=== PATIENT | male | born 1940 | race Caucasian/White ===

== ENCOUNTER 2016-08-06 22:15 | Emergency (ER) | payer OTHER ==
[2016-08-06 22:31] VITALS: BP 161/79; PULSE 69; RESP 22; TEMP 98.1; O2SAT 92
--- NOTE | 2016-08-06 22:34 | CPEKG ---
Heart Rate: 71 RR Interval: 845 P-R Interval: 212 QRSD Interval: 86 QT Interval: 404 QTC Interval: 439 P [place]: 7 QRS [place]: -22 T Wave [place]: 44 EKG Severity - OTHERWISE NORMAL ECG - EKG Impression: SINUS RHYTHM EKG Impression: BORDERLINE LEFT AXIS DEVIATION Electronically Signed By: Jesus Hudson 06-Aug-2016 22:41:04
--- NOTE | 2016-08-06 22:36 | UCPHY ---
H & P Patient Type: Established Chief Complaint Nursing Narrative: Pt had probable mechanical fall off ladder at 1130 today and felt immediate R hip pain. Then fell at 1330 getting out of hot tub, possible syncopal. Is now having trouble bearing weight on R side. cms intact. Time Seen by Provider: 08/06/16 22:21 HPI/ROS: CHIEF COMPLAINT: Hip pain, syncope HISTORY OF PRESENT ILLNESS: Patient is a 76-year-old man who comes to the Urgent Care complaining of hip pain and difficulty walking after a fall from a ladder around 11:00 a.m. he is bruising to his knee and hip and elbow. He is primarily complaining of pain in his hip and states that he cannot walk without using a walker. 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 He has a history of hip replacements bilaterally. this afternoon the patient decided to take a warm bath and while getting out of the bath fainted and hit his head on the wall. He denies headache or neck pain. He does take aspirin but no other blood thinners. He denies having any chest pain or shortness of breath. REVIEW OF SYSTEMS: Constitutional: denies: chills, fever, recent illness, recent injury EENTM: denies: blurred vision, double vision, nose congestion Respiratory: denies: cough, shortness of breath Cardiac: denies: chest pain, irregular heart rate, lightheadedness, palpitations Gastrointestinal/Abdominal: denies: abdominal pain, diarrhea, nausea, vomiting, blood streaked stools Genitourinary: denies: dysuria, frequency, hematuria, pain Musculoskeletal: See HPI Skin: denies: lesions, rash, jaundice, bruising Neurological: See HPI Hematologic/Lymphatic: denies: blood clots, easy bleeding, easy bruising Immunologic/allergic: denies: HIV/AIDS, transplant EXAM: GENERAL: Well-appearing, well-nourished and in no acute distress. HEAD: Atraumatic, normocephalic. EYES: Pupils equal round and reactive to light, extraocular movements intact, sclera anicteric, conjunctiva are normal. ENT: TMs normal, nares patent, oropharynx clear without exudates. Moist mucous membranes. NECK: Normal range of motion, supple without lymphadenopathy or JVD. No cervical spine tenderness LUNGS: Breath sounds clear to auscultation bilaterally and equal. No wheezes rales or rhonchi. HEART: Regular rate and rhythm without murmurs, rubs or gallops. ABDOMEN: Soft, nontender, normoactive bowel sounds. No guarding, no rebound. No masses appreciated. BACK: No CVA tenderness, no spinal tenderness, step-offs or deformities EXTREMITIES: Right hip pain, inguinal pain with rolling contusion to right knee , contusion to left elbow normal range of motion. NEUROLOGICAL: Cranial nerves II through XII grossly intact. Normal speech, normal gait. 5/5 strength, normal movement in all extremities, normal sensation PSYCH: Normal mood, normal affect. SKIN: Warm, dry, normal turgor, no visible rashes or lesions. Source: Patient, Family Exam Limitations: No limitations - Personal History Current Tetanus Diphtheria and Acellular Pertussis (TDAP): Yes - Medical/Surgical History Hx Asthma: Yes Hx Chronic Respiratory Disease: No Hx Diabetes: No Hx Cardiac Disease: No Hx Renal Disease: Yes Hx Cirrhosis: No Hx Alcoholism: No Hx HIV/AIDS: No Hx Splenectomy or Spleen Trauma: No Other PMH: L shoulder, HTN,R hip arthoplasty, renal insufficiency, hypothyroid, allergies & hayfever - Family History Significant Family History: No pertinent family hx - Social History Smoking Status: Never smoked Alcohol Use: Sober Drug Use: None Constitutional: Initial Vital Signs Temperature (C) 36.7 C 08/06/16 22:28 Heart Rate 69 08/06/16 22:28 Respiratory Rate 22 H 08/06/16 22:28 Blood Pressure 161/79 H 08/06/16 22:28 O2 Sat (%) 92 08/06/16 22:28 O2 Delivery Mode Room Air Allergies/Adverse Reactions: No Known Allergies Allergy (Unverified 08/06/16 22:26) Home Medications: Medication Instructions Recorded Levothyroxine [Synthroid 50 mcg 50 mcg PO DAILY06 08/18/14 (*)] Losartan Potassium [Cozaar 50 mg 50 mg PO DAILY 03/04/16 (*)] Aspirin EC [Aspirin EC 325 mg (*)] 325 mg PO DAILY #30 tab 03/06/16 Rosuvastatin Calcium [Crestor] 10 mg PO DAILY #0 tab 03/06/16 Medical Decision Making - Diagnostics EKG Interpretation: An EKG obtained and was read and documented in trace view. Please see trace view for full reading and report. Sinus rhythm no acute ischemic changes. ED Course/Re-evaluation: Recommended that the patient go to the ER so that he can have CT scan done of his head and likely pelvis to rule out pelvic fracture. We did do an EKG here which was sinus rhythm with no ischemic changes or arrhythmias. I arranged transfer to [facility] and spoke with Dr. Allen however the patient tells me prior to discharge that they are going to go to [facility] because they live close to that hospital. Differential Diagnosis: Partial list of the Differential diagnosis considered include but were not limited to; contusion, pelvic fracture, hip fracture, dislocation, head injury , neck injury, orthostatic syncope and although unlikely based on the history and physical exam, I also considered infection, aneurysm, intracranial injury, cervical spine injury. Departure - Departure Disposition: Acute Care Hospital Not [facility] Clinical Impression: Fall Qualifiers: Qualifier Code: (W19.XXXA) Unspecified fall, initial encounter Syncope Qualifiers: Qualifier Code: (R55) Syncope and collapse Condition: Fair Instructions: Fall Prevention (ED), Syncope (ED) Referrals: Lia Nieto MD [Primary Care Provider] - As per Instructions - PQRS PQRS Measurement: 134: Depression screening and followup, PRIME MD-PHQ2 (12 years and older) Over the last 2 weeks, how often have you been bothered by any of the following problems? 1. Feeling down, depressed, or hopeless? 2. Little interest or pleasure in doing things? Patient answered no to both 1 and 2 130: Documentation of medications. Reviewed all patient medications, doses, route and frequency. 226: Do you smoke? No. 47: 65 and older: Advanced care planning. Patient designates surrogate decision maker as spouse . Patient has advanced directive. 51: 18 years old and older with diagnosis of COPD, spirometry performance. Spirometry not performed; equipment not available. 52: 18 years old and older with COPD and symptoms of COPD or FEV1<60% predicted prescribed a B Agonist. Not applicable
== END 2016-08-06 22:44 | disposition short-term general hospital (02) ==
LOC: CED 22:15
DX: R55 Syncope and collapse (principal); M25.551 Pain in right hip; Z96.643 Presence of artificial hip joint, bilateral
CPT/HCPCS: 93005; G0463; 93010-PO; 99215-PO

== ENCOUNTER → 2016-08-06 | Outpatient (CLI) | payer OTHER ==
--- NOTE | 2016-08-06 14:45 | DX ---
PA and lateral chest x-ray 1036 hours. History: Persistent cough. Findings: Comparison to June 20, 2014. Heart size remains within normal limits. Pulmonary vasculature remains mildly prominent centrally. Th ere are a few fibrotic streaks at the left lung base stable in appearance. There is no consolidation, effusion, or pneumothorax. No significant peribronchial thickening is evident. Osseous structures ar e unchanged with mild degenerative disk disease mid thoracic spine. Left shoulder replacement is note d. Impression: 1. Stable mild fibrotic changes at the left base. 2. No active cardiopulmonary disease appreciated.
== END ==
LOC: CIMAGING 10:12
PROVIDERS: ATTEND Internal Medicine
DX: R05 Cough (principal)
CPT/HCPCS: 71020-PO

== ENCOUNTER 2016-12-16 18:51 | Inpatient (IN) | payer OTHER ==
--- NOTE | 2016-12-16 19:01 | EDPHY ---
H & P Time Seen by Provider: 12/16/16 19:00 HPI/ROS: CHIEF COMPLAINT: Expressive aphasia HISTORY OF PRESENT ILLNESS: This patient is a 76 year old male with history of one prior CVA who presents to the Emergency Department with acute expressive aphasia beginning at 1400, five hours prior to arrival. 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 She reports that he appeared confused but did not notice any additional concerns at that time. Upon arrival, he continues to experience moderate word-finding aphasia. He denies one-sided weakness or paresthesias. No headache. He has a history of a similar presentation in March 2016; he was diagnosed with a cerebellar CVA at that time. He takes daily aspirin but no additional anticoagulant use. REVIEW OF SYSTEMS: Constitutional: No fever, no chills Eyes: No visual changes ENT: No sore throat Respiratory: No cough, no shortness of breath Cardiac: No chest pain Gastrointestinal: No nausea, no vomiting, no abdominal pain Genitourinary: No hematuria, no dysuria Musculoskeletal: No leg pain or swelling Skin: No rash Neurological: +expressive aphasia, no headache, no numbness, no weakness Psychiatric: No depression Past Medical/Surgical History: The patient was admitted on 03/06/2016 for complaint of expressive aphasia and was diagnosed with a cerebellar CVA at that time. Records reviewed by myself. PMH also includes: Chronic kidney disease, hypertension, pulmonary embolism, hypothyroidism, hyperlipidemia, PSH includes: Right and left hip surgery, left shoulder surgery. Social History: at bedside. Non-smoker. 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 Smoking Status: Never smoked Physical Exam: General Appearance: Alert, no distress Eyes: Pupils equal and round, no conjunctival pallor or injection ENT, Mouth: Mucous membranes moist Neck: Normal inspection Respiratory: Lungs are clear to auscultation Cardiovascular: Regular rate and rhythm Gastrointestinal: Abdomen is soft and non- tender Neurological: Alert, oriented x3, expressive aphasia, cranial nerves II through XII intact, motor 5/5, sensory intact to light touch Skin: Warm and dry, no rash Extremities: Nontender, no pedal edema Psychiatric: Mood and affect normal Constitutional: Initial Vital Signs Temperature (C) 36.4 C 12/16/16 18:55 Heart Rate 68 12/16/16 18:55 Respiratory Rate 16 05/16/17 18:55 Blood Pressure 174/95 H 12/16/16 18:55 O2 Sat (%) 92 12/16/16 18:55 O2 Delivery Mode Room Air Allergies/Adverse Reactions: No Known Allergies Allergy (Verified 12/16/16 19:50) Home Medications: Medication Instructions Recorded Aspirin EC [Aspirin EC 81 mg (*)] 81 mg PO DAILY 12/16/16 Atorvastatin Calcium [Lipitor 20 20 mg PO DAILY 12/16/16 mg (*)] Herbals/Supplements -Info Only 1 ea PO DAILY 12/16/16 Levothyroxine [Synthroid 50 mcg 50 mcg PO DAILY 12/16/16 (*)] Losartan Potassium [Cozaar 50 mg 50 mg PO DAILY 12/16/16 (*)] Medical Decision Making - Diagnostics EKG Interpretation: EKG interpreted by me reveals normal sinus rhythm, rate 68, atrial premature complex, first degree AV block. Interpretation: normal EKG Imaging Results: Imaging Impressions Head CT 12/16/16 19:07 Impression: Nothing acute on this CT scan. Findings and recommendations discussed with Eleanor Ramos M.D., at 1922 hours , on December 16, 2016. Final report concurs with initial preliminary interpretation. Imaging: Discussed imaging studies w/ fisher scallop Radiologist (No hemorrhage.) ED Course/Re-evaluation: 1903: Stroke alert called by myself at time of presentation. NIH stroke score 1 at time of exam. This 76-year-old male with history of prior CVA in March 2016 presents with acute expressive aphasia presenting at 1400 today. His prior CVA presented with similar neurological deficits described as difficulty coherently producing sentences. Upon presentation today, he states that his symptoms have been improving and reports no additional deficits. He has apparent expressive aphasia and appears frustrated when attempting to speak. No additional deficits on exam. Will proceed with stroke alert protocol. 1906: Patient taken to Imaging for CT of the head. [facility] has been contacted. 1919: The patient has returned from his CT scan and appears much better. He is able to coherently produce sentences to explain the episode today. His reports that he appears to be behaving normally. He has rare trouble with word- finding when I speak with him. 1921: Imaging results reported to me by Dr. Nikki Wan; no acute hemorrhage. 1922: Dr. Robles, [facility] called back. CVA sx have resolved; no consult needed at this time. 1927: NIH stroke score at this time is 0. The patient is behaving and speaking normally per his . I discussed with him the plan for admission for continued evaluation and observation. He is agreeable to this. Pt took ASA today. 1928: Consultation with Dr. Raz Mcfadden, hospitalist, who accepts admission. Differential Diagnosis: The differential diagnosis for the patient's neurologic expressive aphasia included but was not limited to peripheral causes, central causes including CVA , TIA, electrolyte abnormalities and dehydration, cardiogenic causes, atypical causes like migraine syndrome. - Data Points Laboratory Results: Laboratory Results 12/16/16 19:00 12/16/16 19:00 12/16/16 12/16/16 12/16/16 19:00 19:00 18:59 WBC 9.56 10^3/uL H 10^3/uL (3.80-9.50) RBC 5.20 10^6/uL 10^6/uL (4.40-6.38) Hgb 16.6 g/dL g/dL (13.7-17.5) POC Hgb 16.3 gm/dL gm/dL (14.5-17.3) Hct 47.6 % % (40.0-51.0) POC Hct 48 % % (42.8-50.6) MCV 91.5 fL fL (81.5-99.8) MCH 31.9 pg pg (27.9-34.1) MCHC 34.9 g/dL g/dL (32.4-36.7) RDW 14.1 % % (11.5-15.2) Plt Count 180 10^3/uL 10^3/uL (150-400) MPV 9.6 fL fL (8.7-11.7) Neut % (Auto) 64.4 % % (39.3-74.2) Lymph % (Auto) 21.5 % % (15.0-45.0) [place] % (Auto) 8.3 % % (4.5-13.0) Eos % (Auto) 4.8 % % (0.6-7.6) Baso % (Auto) 0.7 % % (0.3-1.7) Nucleat RBC Rel Count 0.0 % % (0.0-0.2) Absolute Neuts (auto) 6.15 10^3/uL 10^3/uL (1.70-6.50) Absolute Lymphs (auto) 2.06 10^3/uL 10^3/uL (1.00-3.00) Absolute Monos (auto) 0.79 10^3/uL 10^3/uL (0.30-0.80) Absolute Eos (auto) 0.46 10^3/uL H 10^3/uL (0.03-0.40) Absolute Basos (auto) 0.07 10^3/uL 10^3/uL (0.02-0.10) Absolute Nucleated RBC 0.00 10^3/uL 10^3/uL (0-0.01) Immature Gran % 0.3 % % (0.0-1.1) Immature Gran # 0.03 10^3/uL 10^3/uL (0.00-0.10) POC Sodium 143 mEq/L mEq/L (134-144) Sodium 140 mEq/L mEq/L (134-144) POC Potassium 4.4 mEq/L mEq/L (3.3-5.0) Potassium 4.4 mEq/L mEq/L (3.5-5.2) POC Chloride 108 mEq/L mEq/L (96-108) Chloride 107 mEq/L mEq/L (97-110) Carbon Dioxide 21 mEq/l L mEq/l (22-31) Anion Gap 12 mEq/L mEq/L (8-16) POC BUN 43 mg/dL H mg/dL (7-23) BUN 37 mg/dL H mg/dL (7-23) Creatinine 1.8 mg/dL H mg/dL (0.7-1.3) POC Creatinine 1.7 mg/dL H mg/dL (0.8-1.5) Estimated GFR 37 Glucose 156 mg/dL H mg/dL (70-100) POC Glucose 156 mg/dL H mg/dL (70-100) Calcium 9.5 mg/dL mg/dL (8.5-10.4) Troponin I < 0.012 ng/mL ng/mL (0-0.034) Point of Care Test Results: 12/16/16 18:59 POC Sodium 143 POC Potassium 4.4 POC Chloride 108 POC BUN 43 H POC Creatinine 1.7 H POC Glucose 156 H Departure - Departure Disposition: [facility] Inpatient Acute Clinical Impression: Expressive aphasia TIA (transient ischemic attack) Qualifiers: Transient cerebral ischemia type: unspecified Qualified Code(s): G45.9 - Transient cerebral ischemic attack, unspecified Condition: Fair Report Scribed for: Eleanor Ramos Report Scribed by: Erika Anne Date of Report: 12/16/16 Time of Report: 19:01 Physician Review and Approval Statement: 12/16/16 19:01 Portions of this note were transcribed by a medical record transcriber. I personally performed a history, physical exam, medical decision making, and confirmed accuracy of information the transcribed note.
[2016-12-16] MEDS ORDERED: ALTEPLASE 50 MG/50 ML VIAL ONE (19:10)
[2016-12-16] MEDS ORDERED: ALTEPLASE 100 MG/100 ML VIAL IV ONE (19:14)
--- NOTE | 2016-12-16 19:14 | CPEKG ---
Heart Rate: 68 RR Interval: 882 P-R Interval: 224 QRSD Interval: 86 QT Interval: 404 QTC Interval: 430 P [place]: 54 QRS [place]: 24 T Wave [place]: 54 EKG Severity - ABNORMAL ECG - EKG Impression: SINUS RHYTHM EKG Impression: ATRIAL PREMATURE COMPLEX EKG Impression: FIRST DEGREE AV BLOCK Electronically Signed By: Eleanor Ramos 16-Dec-2016 20:54:24
[2016-12-16 19:15] LABS: % IMMATURE GRANULYOCYTES 0.3 % (0.0-1.1); ABSOLUTE IMMATURE GRANULOCYTES 0.03 10^3/uL (0.00-0.10); ADD DIFF? NO; ADD MORPH? NO; ADD SCAN? NO; ATYPICAL LYMPHOCYTE FLAG 10 (0-99); FRAGMENT RBC FLAG 0 (0-99); HEMATOCRIT 47.6 % (40.0-51.0); HEMOGLOBIN 16.6 g/dL (13.7-17.5); LEFT SHIFT FLG 0 (0-99); LIPEMIA HEMOLYSIS FLAG 90 (0-99); MEAN CELL HEMOGLOBIN 31.9 pg (27.9-34.1); MEAN CELL HEMOGLOBIN CONCENTR. 34.9 g/dL (32.4-36.7); MEAN CELL VOLUME 91.5 fL (81.5-99.8); MEAN PLATELET VOLUME 9.6 fL (8.7-11.7); PLATELET CLUMPS FLAG 10 (0-99); PLATELET COUNT 180 10^3/uL (150-400); RED CELL DISTRIBUTION WIDTH 14.1 % (11.5-15.2)
[2016-12-16 19:23] LABS: ANION GAP 12 mEq/L (8-16); CALCIUM 9.5 mg/dL (8.5-10.4); CARBON DIOXIDE 21 mEq/l (22-31); CHLORIDE 107 mEq/L (97-110); CREATININE 1.8 mg/dL (0.7-1.3); GLOMERULAR FILTRATION RATE 37; GLUCOSE 156 mg/dL (70-100); POTASSIUM 4.4 mEq/L (3.5-5.2); SODIUM 140 mEq/L (134-144)
[2016-12-16 19:35] LABS: TROPONIN I < 0.012 ng/mL (0-0.034)
[2016-12-16] MEDS ORDERED: ACETAMINOPHEN 325 MG TAB PO PRN (20:20)
[2016-12-16] MEDS ORDERED: ONDANSETRON 4 MG/2 ML VIAL IVP PRN (20:20)
[2016-12-16] MEDS ORDERED: ONDANSETRON DISINTEGRATING 4 MG TAB PO PRN (20:20)
[2016-12-16] MEDS: CLOPIDOGREL BISULFATE 75 MG TAB PO SCH (20:47)
--- NOTE | 2016-12-16 21:03 | GHP ---
[f rep st] HISTORY AND PHYSICAL DATE OF ADMISSION: 12/16/2016 HISTORY: The patient is a pleasant 76-year-old gentleman with history of TIA and hypertension, who presents with what sounds like an episode of expressive aphasia. 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 He was n ot sure what to say. He had a hard time accessing his words. He denies dysarthria, confusion, foca l weakness on one side or another. He returned home at the end of the school day, a couple hours la ter, went home. He went upstairs to change, and about 20 minutes later, his went up and he sadaf d her what happened. They called the ER, and they came here. At this point in time, his NIH stroke scale was 1 on arrival, and ultimately it became 0. When I speak with the patient, he is fluent. He did mention that he was almost 67, but he is actually almost 77, but other than that, he was flue nt and able to name objects and denied other focal neurologic deficits. He has not had any TIA-like symptoms since his admission here. Over last summer with multifocal CVA, which I will discuss lilibeth cevallos. He denies palpitations, fever, chills, nausea, vomiting, diarrhea. He does not smoke cigarettes . He says he has been compliant with aspirin and statin. REVIEW OF SYSTEMS: Complete 10-point review of systems conducted and negative except as noted in th e HPI. PAST MEDICAL HISTORY: 1. Multifocal CVA. Please see MRI from 03/04/2016. This is consistent with embolic infarct. He w as found have a small PFO. He had ultrasounds of multiple extremities, showing no evidence of DVT, and ultimately he was placed on aspirin and not therapeutic anticoagulation. This was confirmed by [facility] and seen by Cardiology, did not recommend closure, as the literature in a scenario like this cruz s not demonstrate benefit. 2. Hypertension. 3. Possible hyperlipidemia. 4. Hypothyroidism. ALLERGIES: No known drug allergies. HOME MEDICATIONS: Losartan, aspirin, atorvastatin, levothyroxine. SOCIAL HISTORY: Occasional alcohol. No tobacco. Lives in [place]. 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 FAMILY HISTORY: Parents . PHYSICAL EXAMINATION: VITAL SIGNS: Temp 36.9, blood pressure 140/84, it was 174/95 on presentation , pulse 86, breathing 16 times a minute, 94% on room air. GENERAL: No acute distress. HEENT: Scl erae anicteric. Oropharynx clear. Mucous membranes are moist. NECK: Supple without lymphadenopat hy or JVD. LUNGS: Clear to auscultation bilaterally. HEART: S1, S2. ABDOMEN: Soft, nontender, nondistended. LOWER EXTREMITIES: Without edema. Calves are nontender. SKIN: Without rash. NEUR OLOGIC: The patient appears fluent, as far as I can tell. He is able to name objects, repeat objec ts. He does not have dysarthria. Upper extremity and lower extremity strength are 5/5 bilaterally. Cerebellar testing not done. Head CT performed shows no acute bleed or stroke. They have commented on moderate periventricular w venkatesh matter disease, and multifocal small stroke seen on the MRI was not noted. EKG, interpreted by me, shows sinus at 68 with normal axis and intervals. There are no ST or T-wave changes. There is 1 PAC. I have discussed the case with Dr. Eleanor Ramos. ASSESSMENT/PLAN: 76-year-old gentleman with transient ischemic attack. 1. Transient ischemic attack. This is certainly consistent with a TIA, as far as I am concerned. This probably represents a failure of aspirin. We can transition him to Plavix. We can check a lip id panel in the morning. I think it is reasonable to repeat an MRI, because if he does have more ev idence of multifocal CVAs, then perhaps a greater search for an embolic source, such as his aortic, could be considered. This was discussed during his last hospitalization. 2. History of patent foramen ovale. I think this is probably a non-issue. 3. Transient ischemic attack, on aspirin. Will transition him to Plavix. I have not ordered an ec hocardiogram as he had [facility] during his last admission. I do not anticipate that it has changed. 4. Prophylaxis. He has a history of DVT and PE following shoulder surgery. He therefore should be on prophylaxis if he is in the hospital longer than 24 hours. I anticipate that he will leave [facility], so I will hold at this time. 5. Disposition. Observation status. /[id number]/MODL
[2016-12-17] MEDS: LEVOTHYROXINE 50 MCG TAB PO SCH (05:56)
[2016-12-17 06:01] LABS: CHOLESTEROL 112 mg/dL (140-220); CHOLESTEROL/HDL RATIO 2.38 RATIO (1.00-4.97); HIGH DENSITY LIPOPROTEIN 47 mg/dL (40-65); LDL/HDL RATIO 0.94 RATIO (1.00-3.64); LOW DENSITY LIPOPROTEIN 44 mg/dL (80-100); NON-HIGH DENSITY LIPOPROTEIN 65 mg/dL (90-129); TRIGLYCERIDE 107 mg/dL (40-150); VERY LOW DENSITY LIPOPROTEINS 21 mg/dL (8-25)
[2016-12-17] MEDS: CLOPIDOGREL BISULFATE 75 MG TAB PO SCH (08:29)
[2016-12-17] MEDS: ATORVASTATIN CALCIUM 20 MG TAB PO SCH (08:29)
[2016-12-17] MEDS: LOSARTAN POTASSIUM 50 MG TAB PO SCH (08:29)
[2016-12-17] MEDS ORDERED: Herbals/Supplements -Info Only PO SCH (09:00)
--- NOTE | 2016-12-17 17:45 | HOSPPROG ---
Hospitalist Progress Note Assessment/Plan: # Acute CVA - MRI (personally reviewed and interpreted) punctate left frontoparietal infarct patient with persist aphasia - oxygen saturations 90% on RA - plavix started- continuing aspirin - neurology consulting - cardiology to place a monitor in am - make NPO # h/o Cerebrovascular disease - suspected embolic etiology without identified afib- LDL 44 - cont plavix as above - repeating ECHO # HTN - appropriate control # proph - lovenox # diet NPO after midnight for event monitor implantation I have discussed the case with neurology - will treat with dual antiplatelet meds and continue diagnostic work up for embolic source Subjective: still having word finding difficulties Objective: Vital Signs Temp Pulse Resp BP Pulse Ox 36.7 C 57 L 18 158/85 H 90 L 12/17/16 16:00 12/17/16 16:00 12/17/16 16:00 12/17/16 16:00 12/17/16 16:00 12/16/16 12/17/16 12/18/16 05:59 05:59 05:59 Intake Total 300 Balance 300 - Physical Exam Constitutional: appears nourished Eyes: anicteric sclera Ears, Nose, Mouth, Throat: moist mucous membranes Cardiovascular: regular rate and rhythym, systolic murmur Respiratory: no respiratory distress, no rales or rhonchi Gastrointestinal: normoactive bowel sounds, soft, non-tender abdomen Genitourinary: no bladder fullness Skin: warm, normal color Musculoskeletal: No asymmetric calves Neurologic: AAOx3, other (aphasia) Psychiatric: interacting appropriately, not anxious Lymph, Heme, Immunologic: no cervical LAD ICD10 Worksheet Patient Problems: Problems Problem Status Onset Expressive aphasia Acute TIA (transient ischemic attack) Acute Altered mental status Acute Osteoarthritis of hip Acute
--- NOTE | 2016-12-18 02:58 | GCON ---
[f rep st] CONSULTATION NEUROLOGY CONSULTATION REFERRING PHYSICIAN: Raz Mcfadden MD BILLING INFORMATION: 70 total minutes on floor time today in coordination of care with other providers including Cardiology and Internal Medicine, reviewing records from 2016 and this admission, along with direct counseling of the patient and his . CHIEF COMPLAINT: Stroke. HISTORY OF PRESENT ILLNESS: The patient is a very pleasant 76-year-old gentleman, who I know well from multiple bilateral cerebral infarcts he had in March 2016. Please see his extensive notes and records at that time. He had a full workup including venous ultrasounds, surface and transesophageal echocardiogram, neck and head MRA, ECG, telemetry, and outpatient 30-day event monitor. In the end, there was no cause found for his strokes. The pattern suggested a proximal embolic phenomena. 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 This occurred while taking daily aspirin 81 mg daily. He was discharged on 325 mg daily from his March 2016 hospitalization. The patient was evaluated via stroke alert and had an NIH score of 1, and was not deemed to be a thrombolysis candidate, and was admitted for further evaluation. Brain MRI done yesterday showed a small acute to subacute focal infarct in the left frontoparietal junction. There was some encephalomalacia as well corresponding to his previous infarcts. He has had no atrial fibrillation overnight on ECG telemetry. I discussed the case at length with Dr. Leonardo and Dr. Oden of Cardiology. Overall, although he has had negative tests for paroxysmal atrial fibrillation, this history certainly warrants further studies in that regard. This we discuss further below in the assessment and plan. For past medical history, social history, family history, review of systems, please see the history and physical by Dr. Mcfadden. PHYSICAL EXAM: VITAL SIGNS: Blood pressure 126/72, temperature 36.8, heart rate 63 and regular, respiratory rate 16. HIGHER MENTAL FUNCTIONS: He is awake , alert, and can name 3/5. He has expressive difficulties and has circular and tangential features, as he has difficulty finding the words he wants to say. There were also telegraphic portions to his speech. Comprehension was normal and following commands up to 2 and 3 steps. He had an aphasia, expressive greater than comprehension. Cranial nerve exam was normal 2 through 7 and 12. MOTOR: Normal strength and tone throughout. SENSORY: Normal to light touch in all 4 extremities. COORDINATION: Normal in upper and lower extremities. IMPRESSION AND PLAN: 1. Small left frontal infarct. The patient has had a recurrent stroke in the left frontal region causing his expressive aphasia. I discussed the case at length with Internal Medicine and Cardiology. He has not evidence of PAF on ECG telemetry or outpatient 30 day monitor. We will check an echocardiogram to ensure there is no obvious intracardiac thrombus. If there is no thrombus, we will discharge the patient on dual antiplatelet therapy with Plavix 75 mg daily and aspirin 81 mg daily, and have the patient follow up with Cardiology within 1 week for implantation of a LINQ implantable hospital monitor for prolonged screening for any paroxysmal atrial fibrillation. He should continue statin therapy. He will have outpatient speech therapy, as well. We also discussed reasons and precautions to return to the ER in terms of recurrent stroke symptoms. Otherwise, he will have close followup with Internal Medicine, Cardiology, and speech therapy as an outpatient. No further recommendations now. Thank you for this consultation. /[id number]/MODL MTDD
[2016-12-18] MEDS: LEVOTHYROXINE 50 MCG TAB PO SCH (05:27)
[2016-12-18] MEDS: LOSARTAN POTASSIUM 50 MG TAB PO SCH (08:16)
[2016-12-18] MEDS: ATORVASTATIN CALCIUM 20 MG TAB PO SCH (08:34)
[2016-12-18] MEDS: CLOPIDOGREL BISULFATE 75 MG TAB PO SCH ×2 (08:34→16:05)
--- NOTE | 2016-12-18 10:43 | SUROPNOTE ---
SANJEEV Operative Report - Surgery PROCEDURE: LINQ implant INDICATION: CVAs without cause - suspect pAF DETAILS: After consent was obtained, the patient was draped in the usual sterile fashion. Lidocaine was used to the left sternal border at the location of the 2nd and 3rd intercostal space. A single incision was made with a #12 blade, then proper size and depth was achieved with the provided blade. The LINQ rail delivery system was used to position the device without incident, and the incision was then closed with three antony. DEVICE INFORMATION: [employer] LINQ SN: [id number] No complications were appreciated No sedation was used Patient recovered without incident
--- NOTE | 2016-12-18 13:17 | NEUROPROG ---
Assessment: 1. Left frontal stroke, cryptogenic The patient stayed overnight for further cardiac evaluation and had the LINQ monitor placed this morning. I appreciate cardiology's assistance with this gentleman's case. He is having the echocardiogram now. If there is no obvious intracardiac thrombus, he can be discharged home from my standpoint on dual antiplatelet therapy with Plavix 75 mg +aspirin 81 mg daily and have close follow-up with cardiology, primary care and speech therapy as an outpatient. If there is any evidence of paroxysmal atrial fibrillation on his implantable satellite project site monitor, then the optimal treatment would be switching from anti- platelet therapy to oral anticoagulation. No further recommendations now. We will sign off and continue to follow as needed. Please do not hesitate to call with any questions or changes in neurologic status. Subjective: No new symptoms Objective: Vital Signs Temp Pulse Resp BP Pulse Ox 36.6 C 54 L 18 134/85 H 94 12/18/16 11:59 12/18/16 11:59 12/18/16 11:59 12/18/16 11:59 12/18/16 11:59 Patient is awake and alert He is aphasic, expressive greater than comprehension Allergies/Adverse Reactions: No Known Allergies Allergy (Verified 12/16/16 19:50)
--- NOTE | 2016-12-18 16:30 | HOSPPROG ---
Hospitalist Progress Note Assessment/Plan: # Acute CVA - CT (personally reviewed and interpreted) MRI (personally reviewed and interpreted) punctate left frontoparietal infarct patient with persist aphasia - oxygen saturations 90% on RA - continue plavix and aspirin - neurology and cardiology consulting - Linx monitor to be placed today - NPO for procedure # h/o Cerebrovascular disease - suspected embolic etiology without identified afib- LDL 44 - cont plavix and aspirin - repeating ECHO # HTN - appropriate control # proph - lovenox # diet NPO until procedure I have discussed the case with RN - will work towards rehab placement as actively recommended by therapies Subjective: Aphasia persists Objective: Vital Signs Temp Pulse Resp BP Pulse Ox 36.4 C 59 L 20 128/74 H 93 12/18/16 15:31 12/18/16 15:31 12/18/16 15:31 12/18/16 15:31 12/18/16 15:31 12/17/16 12/18/16 12/19/16 05:59 05:59 05:59 Output Total 1200 Balance -1200 - Physical Exam Constitutional: appears nourished Eyes: anicteric sclera Ears, Nose, Mouth, Throat: moist mucous membranes Cardiovascular: regular rate and rhythym Respiratory: no respiratory distress, no rales or rhonchi Gastrointestinal: normoactive bowel sounds, soft, non-tender abdomen Genitourinary: no bladder fullness Skin: warm, normal color Musculoskeletal: No asymmetric calves Neurologic: other (aphasia) Psychiatric: interacting appropriately Lymph, Heme, Immunologic: no cervical LAD ICD10 Worksheet Patient Problems: Problems Problem Status Onset Expressive aphasia Acute TIA (transient ischemic attack) Acute Altered mental status Acute Osteoarthritis of hip Acute
--- NOTE | 2016-12-18 17:16 | ECHO ---
[id number] + + [address] : : [place] [address] : : [phone] + + Adult Echocardiographic Report + -----+ :Name: SHAWNA ARIAS Catrina Date: 12/18/2016 01:04 PM : : Hospital Admission Number: [id number] Location : 361: :: 1940 Gender: Male Height: 70 in : :Age: 76 yrs Race: WH Weight: 201 lb : :Reason For Study: Eval for embolic source : : BSA: 2.1 meters2 : :History: Expressive Aphasia, Post Linq Placement, Known PFO : + -----+ MMode/2D Measurements \T\ Calculations IVSd: 0.94 cm LVIDd: 3.5 cm FS: 46.5 % Ao root diam: 3.7 cm LVPWd: 1.1 cm LVIDs: 1.9 cm EDV(Teich): 51.9 ml ACS: 1.9 cm ESV(Teich): 11.0 ml EF(Teich): 78.8 % Normal Measurement Values: + + :LVIDd (3.5-5.7cm) IVSd (0.6-1.1cm) LVPWd (0.6-1.1cm) Aortic Root (2.0-3.7cm)Left Atrium (1.5-4.0cm): :LV Vol(d) (76-115ml) LV Vol(s) (29-48ml) Ejec Fraction (50-65%)PV Ke (0.6- 1.2m/s) TV Ke (0.4-1.0m/s) : :MV E Ke (0.8-1.0m/s)MV A Ke (0.3-1.0m/s)LVOT Ke (0.7-1.2m/s) Asc Ao Ke ( 0.9-1.8m/s) : + + Doppler Measurements \T\ Calculations MV E max ke: 47.9 cm/sec MV A max ke: 62.2 cm/sec MV E/A: 0.77 Left Ventricle The left ventricle is normal in size. There is normal left ventricular wall thickness. The left ventricular ejection fraction is normal. There is Doppler evidence for diastolic dysfunction. Ejection Fraction = 78%. The left ventricular wall motion is normal. Right Ventricle The right ventricle is normal in size and function. Atria The left atrial size is normal. Right atrial size is normal. Mitral Valve The mitral valve is normal in structure and function. There is trace mitral regurgitation. Tricuspid Valve Normal tricuspid valve. No tricuspid regurgitation. Aortic Valve The aortic valve is normal in structure and function. There is no aortic stenosis. There is no aortic insufficiency. Pulmonic Valve The pulmonic valve is not well visualized. There is no pulmonic valvular regurgitation. Great Vessels The aortic root is normal size. Pericardium/Pleural There is no pericardial effusion. Conclusion A complete two-dimensional transthoracic echocardiogram was performed (2D, M-mode, Doppler and color flow Doppler). (1) Left ventricular systolic ejection fraction was normal (75%) - normal wall motion (2) No left ventricular hypertrophy (3) Diastolic dysfunction was present (4) Normal right ventricular size and function (5) Normal atrial dimensions (6) Physiologic mitral regurgitation (7) Trileaflet aortic valve without sclerosis or insufficiency (8) Grossly normal tricuspid valve (9) Poor visualization of the pulmonic valve (10) In comparison to prior echocardiogram from 03-06-16, no changes have been noted. There is a known PFO from previous BRUNA exam and TIA 03/18 Final Reading Physician: Didi Anderson signed on 12/18/2016 05:15 PM Ordering Physician: Robert Madison Performed By: Martinez Belcher, KIMCS
[2016-12-19 04:49] LABS: HEMATOCRIT 47.2 % (40.0-51.0); HEMOGLOBIN 16.5 g/dL (13.7-17.5); MEAN CELL HEMOGLOBIN 31.5 pg (27.9-34.1); MEAN CELL VOLUME 90.1 fL (81.5-99.8); RED BLOOD CELL COUNT 5.24 10^6/uL (4.40-6.38)
[2016-12-19 05:14] VITALS: RESP 16
[2016-12-19] MEDS: LEVOTHYROXINE 50 MCG TAB PO SCH (05:14)
[2016-12-19 07:16] VITALS: TEMP 97.9
[2016-12-19] MEDS: CLOPIDOGREL BISULFATE 75 MG TAB PO SCH (08:53)
[2016-12-19] MEDS: LOSARTAN POTASSIUM 50 MG TAB PO SCH (08:53)
[2016-12-19] MEDS: ATORVASTATIN CALCIUM 20 MG TAB PO SCH (08:55)
--- NOTE | 2016-12-19 11:32 | PDIAF ---
- Diagnosis Diagnosis: cva Code Status: Full Code - Medication Management Discharge Medications: Medications to Continue on Transfer Aspirin EC [Aspirin EC 81 mg (*)] 81 mg PO DAILY 12/16/16 [Last Taken 12/16/16] Atorvastatin Calcium [Lipitor 20 mg (*)] 20 mg PO DAILY 12/16/16 [Last Taken ] Herbals/Supplements -Info Only 1 ea PO DAILY 12/16/16 [Last Taken Unknown] Levothyroxine [Synthroid 50 mcg (*)] 50 mcg PO DAILY 12/16/16 [Last Taken ] Losartan Potassium [Cozaar 50 mg (*)] 50 mg PO DAILY 12/16/16 [Last Taken ] Clopidogrel Bisulfate [Plavix (*)] 75 mg PO DAILY tab 12/19/16 [Last Taken Unknown] Discharge Medications: Refer to the Discharge Home Medication list for PRN reason. - Orders Services needed: Registered Nurse, Physical Therapy, Occupational Therapy, Speech Language Pathologist Diet Recommendation: cardiac -low fat low salt Diet Texture: Regular Texture Diet - Follow Up Care Current Providers and Referrals: SHEELA CORREA [Other] - As per Instructions Robert Madison MD [Medical Doctor] - Abisai Oden MD [Medical Doctor] -
[2016-12-19 11:33] VITALS: BP 112/67; PULSE 76; O2SAT 97
--- NOTE | 2016-12-19 15:43 | GDS ---
[f rep st] DISCHARGE SUMMARY DISCHARGE DIAGNOSES: Include. 1. Acute left frontal stroke. 2. History of previous stroke and cerebral vascular disease, multifocal on previous diagnosis. 3. Hypertension. 4. Hyperlipidemia. 5. Hypothyroidism. 6. 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 For details of patient's initial presentation, ple ase see the history and physical dated 12/16/2016. CONSULTATIVE SERVICES: Include Cardiology and Neurology. PROCEDURES: On 12/16/2016, patient had an MRI of the brain, which shows an acute punctate infarct o f the left frontoparietal junction with encephalomalacia in areas of prior stroke, largest areas in the periphery of the left parietal lobe. On 12/17/2016, patient had a transthoracic echocardiogram, which shows no intracardiac thrombus. Ejection fraction estimated at 75%. 12/18/2016, patient had a link monitor placed for workup of suspected atrial fibrillation. HOSPITAL COURSE: By issue. 1. Acute CVA. Patient was admitted, had appropriate imaging and workup, including MRI and echo. S uspicion remains high for the patient having undiagnosed atrial fibrillation based on his PFO and mu ltifocal strokes in the past. He was initiated on Plavix and aspirin as dual therapy and is being d ischarged to inpatient rehabilitation for speech, occupational and physical therapy. The patient wi ll follow with both Neurology and Cardiology for monitoring of the Link and ongoing workup for possi ble atrial fibrillation. 2. Hypertension. Patient's blood pressures remain more controlled during this hospital stay. His home medications were continued. 3. Hypothyroidism. Again, no changes were made to his medication regimen. PENDING STUDIES: At the time of this dictation are none. FOLLOWUP APPOINTMENTS: Include with Cardiology and Neurology in the next 2-4 weeks. I spent greate r than 30 minutes in the planning and coordination of this disposition. /[id number]/MODL
== END 2016-12-19 14:13 | DRG 41 ==
LOC: F3N 20:16 → OBSVTOIN 12-18 09:03
PROVIDERS: ADMIT Internal Medicine; ATTEND Hospitalist
PROC: 0JH60PZ Insertion of Cardiac Rhythm Related Device into Chest Subcutaneous Tissue and Fascia, Open Approach (ICD-10-PCS; principal; 2016-12-18)
DX: I63.9 Cerebral infarction, unspecified (principal); Q21.1 Atrial septal defect; R47.01 Aphasia; I10 Essential (primary) hypertension; E78.5 Hyperlipidemia, unspecified; E03.9 Hypothyroidism, unspecified; Z86.73 Personal history of transient ischemic attack (TIA), and cerebral infarction without residual deficits
CPT/HCPCS: 82947-QW; 92507-GN; 92523-GN; 97116-GP; 97162-GP; 97166-GO; 97530-GO; 97532-GO; 97535-GO; C1764; G0378; G8978-GP-CI; G8979-GP-CH; G8987-GO-CJ; G8988-GO-CI; G8989-GO-CJ; G9162-GN-CK; G9163-GN-CJ; J2997

== ENCOUNTER 2017-01-04 13:20 | Emergency (ER) | payer OTHER ==
--- NOTE | 2017-01-04 13:35 | EDPHY ---
H & P Stated Complaint: "not feeling well" Time Seen by Provider: 01/04/17 13:34 - Personal History Current Tetanus/Diphtheria Vaccine: Yes Current Tetanus Diphtheria and Acellular Pertussis (TDAP): Yes - Medical/Surgical History Hx Asthma: Yes Hx Chronic Respiratory Disease: No Hx Diabetes: No Hx Cardiac Disease: No Hx Renal Disease: Yes Hx Cirrhosis: No Hx Alcoholism: No Hx HIV/AIDS: No Hx Splenectomy or Spleen Trauma: No Other PMH: L shoulder, HTN,R/l hip arthoplasty, renal insufficiency, hypothyroid , - Social History Smoking Status: Never smoked Constitutional: Initial Vital Signs Temperature (C) 36.7 C 01/04/17 13:23 Heart Rate 64 01/04/17 13:23 Respiratory Rate 14 01/04/17 13:23 Blood Pressure 114/74 01/04/17 13:23 O2 Sat (%) 94 01/04/17 13:23 O2 Delivery Mode Room Air Allergies/Adverse Reactions: No Known Allergies Allergy (Verified 12/16/16 19:50) Home Medications: Medication Instructions Recorded Aspirin EC [Aspirin EC 81 mg (*)] 81 mg PO DAILY 12/16/16 Atorvastatin Calcium [Lipitor 20 20 mg PO DAILY 12/16/16 mg (*)] Herbals/Supplements -Info Only 1 ea PO DAILY 12/16/16 Levothyroxine [Synthroid 50 mcg 50 mcg PO DAILY 12/16/16 (*)] Losartan Potassium [Cozaar 50 mg 50 mg PO DAILY 12/16/16 (*)] Clopidogrel Bisulfate [Plavix (*)] 75 mg PO DAILY tab 12/19/16 Medical Decision Making ED Course/Re-evaluation: CHIEF COMPLAINT: Malaise HISTORY OF PRESENT ILLNESS: The patient is a 77 y/o male, with a recent history of CVA and ongoing aphasia, arriving with his complaining of general malaise onset today. He has a history of multifocal CVA and embolic infarction, PFO, hypertension, and recent implantation of a LINQ monitor after his CVA on 12/16/16, about 3 weeks ago. His states he has difficulty expressing how he feels today due to the aphasia. His states he was unable to pull weeds with his and went inside after stating he didn't feel well. They contacted his information analyst, Dr. Oden, for evaluation. He currently denies fever, chills, chest pain, abdominal pain, vomiting, diarrhea, headache, urinary complaints, cough, rhinorrhea, or dizziness. There is some question if the patient has been able to stay properly hydrated while outside today. REVIEW OF SYSTEMS: A 10 point review of systems was performed and is negative with the exception of the elements mentioned in the history of present illness. PHYSICAL EXAM: HR, BP, O2 Sat, RR. Temp noted General Appearance: Alert, well hydrated, appropriate, and non-toxic appearing. Head: Atraumatic without scalp tenderness or obvious injury Eyes: Pupils equal, round, reactive to light and accommodation, EOMI, no trauma , no injection. Ears: Clear bilaterally, no perforation, normal landmarks Nose: Atraumatic, no rhinorrhea, clear. Throat: There is no erythema or exudates, no lesions, normal tonsils, mucus membranes moist. Neck: Supple, nontender, no lymphadenopathy. Respiratory: No retractions, no distress, no wheezes, and no accessory muscle use. Lungs are clear to auscultation bilaterally. Cardiovascular: Regular rate and rhythm, no murmurs, rubs, or gallops. Good capillary refill all extremities. Gastrointestinal: Abdomen is soft, nontender, non-distended, no masses, no rebound, no guarding, no peritoneal signs. Musculoskeletal: Normal active ROM of all extremities, atraumatic. Neurological: Alert, appropriate, and interactive. Nonfocal. Skin: No rashes, good turgor, no nodules on palpation. Past medical history: CVA x2 - most recently December 2016, PFO on BRUNA in Mar 2016 - not repaired, hypertension Past surgical history: LINQ monitor implanted December 2016 Family history: noncontributory Social history: at bedside. Nonsmoker. 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 Oden Prior medical records reviewed including admission 12/16/16 for CVA. DIAGNOSTICS/PROCEDURES/CRITICAL CARE TIME: The 12 lead EKG was interpreted by myself. Sinus rhythm rate 57. First degree AV block. See hard copy and/or "tracemaster" electronic copy for interpretation. DIFFERENTIAL DIAGNOSIS: The differential diagnosis for the patient's malaise included but was not limited to heat exhaustion, dehydration, cardiac causes, complications from recent CVA, pneumonia, urinary tract infection, viral syndrome, meningitis, and sepsis. MEDICAL DECISION MAKING: This is an elderly 77 y/o male with recent history of his second CVA complaining of vague malaise for the last few hours. He is unable to provide further detail about his symptoms, though his states this is due to his persistent aphasia from his CVA. There is some question if the patient is dehydrated after helping his garden this morning. His neuro exam is nonfocal without notable aphasia for me. His vitals are WNL. Plan for IV, labs, UA, EKG, and IV fluids. 1L IV NS administered. EKG is not concerning. His labs indicate renal insufficiency with creatinine of 1.8 that is not significantly worse since 2015, but are otherwise unremarkable. 1540: Reevaluated patient and discussed work up with him and his . He is feeling improved and ready to go home. I've advised him to increase fluid intake and follow up with his PCP this week if needed. Return precautions given. - Data Points Laboratory Results: Laboratory Results 01/04/17 14:14 01/04/17 14:14 01/04/17 01/04/17 01/04/17 15:10 14:14 14:14 WBC 7.86 10^3/uL 10^3/uL (3.80-9.50) RBC 5.16 10^6/uL 10^6/uL (4.40-6.38) Hgb 16.5 g/dL g/dL (13.7-17.5) Hct 47.6 % % (40.0-51.0) MCV 92.2 fL fL (81.5-99.8) MCH 32.0 pg pg (27.9-34.1) MCHC 34.7 g/dL g/dL (32.4-36.7) RDW 13.6 % % (11.5-15.2) Plt Count 191 10^3/uL 10^3/uL (150-400) MPV 9.3 fL fL (8.7-11.7) Neut % (Auto) 61.9 % % (39.3-74.2) Lymph % (Auto) 18.4 % % (15.0-45.0) [place] % (Auto) 11.6 % % (4.5-13.0) Eos % (Auto) 7.0 % % (0.6-7.6) Baso % (Auto) 0.8 % % (0.3-1.7) Nucleat RBC Rel Count 0.0 % % (0.0-0.2) Absolute Neuts (auto) 4.87 10^3/uL 10^3/uL (1.70-6.50) Absolute Lymphs (auto) 1.45 10^3/uL 10^3/uL (1.00-3.00) Absolute Monos (auto) 0.91 10^3/uL H 10^3/uL (0.30-0.80) Absolute Eos (auto) 0.55 10^3/uL H 10^3/uL (0.03-0.40) Absolute Basos (auto) 0.06 10^3/uL 10^3/uL (0.02-0.10) Absolute Nucleated RBC 0.00 10^3/uL 10^3/uL (0-0.01) Immature Gran % 0.3 % % (0.0-1.1) Immature Gran # 0.02 10^3/uL 10^3/uL (0.00-0.10) Sodium 139 mEq/L mEq/L (134-144) Potassium 4.4 mEq/L mEq/L (3.5-5.2) Chloride 109 mEq/L mEq/L (97-110) Carbon Dioxide 23 mEq/l mEq/l (22-31) Anion Gap 7 mEq/L L mEq/L (8-16) BUN 37 mg/dL H mg/dL (7-23) Creatinine 1.8 mg/dL H mg/dL (0.7-1.3) Estimated GFR 37 Glucose 94 mg/dL mg/dL (70-100) Calcium 9.5 mg/dL mg/dL (8.5-10.4) Urine Color YELLOW Urine Appearance CLEAR Urine pH 5.0 (5.0-7.5) Ur Specific [place] 1.021 (1.002-1.030) Urine Protein NEGATIVE (NEGATIVE) Urine Ketones NEGATIVE (NEGATIVE) Urine Blood NEGATIVE (NEGATIVE) Urine Nitrate NEGATIVE (NEGATIVE) Urine Bilirubin NEGATIVE (NEGATIVE) Urine Urobilinogen NEGATIVE EU EU (0.2-1.0) Ur Leukocyte Esterase NEGATIVE (NEGATIVE) Urine Glucose NEGATIVE (NEGATIVE) Medications Given: Discontinued Medications Sodium Chloride (Ns) 1,000 mls @ 0 mls/hr IV ONCE ONE PRN Reason: Wide Open Stop: 01/04/17 13:46 Last Admin: 01/04/17 14:20 Dose: 1,000 mls Departure - Departure Disposition: Home, Routine, Self-Care Clinical Impression: Malaise, Dehydration Condition: Good Instructions: Dehydration (ED), Heat Exhaustion (ED), Fatigue (ED) Additional Instructions: 1. Increase fluid intake. 2. Follow up with your primary care provider for ongoing symptoms over the next 1-2 days. 3. Return to the ED for any worsening of condition. Referrals: Lia Nieto MD [Primary Care Provider] - As per Instructions Report Scribed for: Rigoberto Gomez Report Scribed by: Shara Roberson Date of Report: 01/04/17 Time of Report: 14:10
[2017-01-04] MEDS ORDERED: NS 1,000 ML IV ONE (13:45)
--- NOTE | 2017-01-04 14:13 | CPEKG ---
Heart Rate: 57 RR Interval: 1053 P-R Interval: 236 QRSD Interval: 84 QT Interval: 412 QTC Interval: 401 P [place]: 45 QRS [place]: 1 T Wave [place]: 45 EKG Severity - ABNORMAL ECG - EKG Impression: SINUS RHYTHM EKG Impression: FIRST DEGREE AV BLOCK Electronically Signed By: Rigoberto Gomez 04-Jan-2017 18:46:49
[2017-01-04 14:21] LABS: % IMMATURE GRANULYOCYTES 0.3 % (0.0-1.1); ABSOLUTE IMMATURE GRANULOCYTES 0.02 10^3/uL (0.00-0.10); ADD DIFF? NO; ADD MORPH? NO; ADD SCAN? NO; ATYPICAL LYMPHOCYTE FLAG 20 (0-99); FRAGMENT RBC FLAG 0 (0-99); HEMATOCRIT 47.6 % (40.0-51.0); HEMOGLOBIN 16.5 g/dL (13.7-17.5); LEFT SHIFT FLG 0 (0-99); LIPEMIA HEMOLYSIS FLAG 90 (0-99); MEAN CELL HEMOGLOBIN CONCENTR. 34.7 g/dL (32.4-36.7); MEAN CELL VOLUME 92.2 fL (81.5-99.8); MEAN PLATELET VOLUME 9.3 fL (8.7-11.7); PLATELET CLUMPS FLAG 0 (0-99); PLATELET COUNT 191 10^3/uL (150-400); RED BLOOD CELL COUNT 5.16 10^6/uL (4.40-6.38); RED CELL DISTRIBUTION WIDTH 13.6 % (11.5-15.2)
[2017-01-04 14:37] LABS: ANION GAP 7 mEq/L (8-16); CALCIUM 9.5 mg/dL (8.5-10.4); CARBON DIOXIDE 23 mEq/l (22-31); CHLORIDE 109 mEq/L (97-110); CREATININE 1.8 mg/dL (0.7-1.3); GLOMERULAR FILTRATION RATE 37; GLUCOSE 94 mg/dL (70-100); POTASSIUM 4.4 mEq/L (3.5-5.2); SODIUM 139 mEq/L (134-144)
[2017-01-04 15:28] VITALS: BP 130/73
[2017-01-04 15:28] LABS: COLOR YELLOW; LEUKOCYTE ESTERASE,URINE NEGATIVE (NEGATIVE); NITRITE,URINE NEGATIVE (NEGATIVE)
[2017-01-04 16:02] VITALS: PULSE 57; RESP 12; TEMP 97.7; O2SAT 94
== END 2017-01-04 16:04 | disposition home or self-care (01) ==
DX: R53.81 Other malaise (principal); E86.0 Dehydration; I10 Essential (primary) hypertension; J45.909 Unspecified asthma, uncomplicated; Z79.82 Long term (current) use of aspirin; Z86.73 Personal history of transient ischemic attack (TIA), and cerebral infarction without residual deficits

== ENCOUNTER → 2017-09-21 | Outpatient (CLI) | payer OTHER | LOC: BRMIMAGING 11:30 | PROVIDERS: ATTEND Internal Medicine Nephrology | DX: R79.89 Other specified abnormal findings of blood chemistry (principal); N18.9 Chronic kidney disease, unspecified | CPT/HCPCS: 76770-PO ==

== ENCOUNTER 2018-01-02 10:19 | Observation (INO) | payer OTHER ==
--- NOTE | 2018-01-02 10:51 | EDPHY ---
H & P Stated Complaint: poss stroke Time Seen by Provider: 01/02/18 10:25 HPI/ROS: CHIEF COMPLAINT: Aphasia and trouble walking. HISTORY OF PRESENT ILLNESS: This is a 78-year-old male with prior history of cryptogenic stroke recently started on Eliquis, followed by Coumadin for some unknown specifics related to heart rhythm irregularity. His last dose of Eliquis was 48 hr ago. He has been up this morning. Only around 9:00 a.m. To his spouse notice that he has some trouble articulating himself and then also noted some trouble walking. Specifically, with respect to the walking, using direct his right foot. She notes that he does not seem was stable as usual. She finds that his aphasia has not progressed nor has improved since that time. Of note, he recalls no specific injury or falls or bumps in the head or difficulty with headache. In December of [address] [facility] with aphasia. He had a workup that was negative for new specific etiology. Placed on Plavix and aspirin. In March of 2016 he presented for a cerebellar occipital CVA. At that time BRUNA echocardiogram showed a small PFO however he was noted to have negative DVT exams of the lower extremities. There was concern of embolic disease given the small infarcts seen on MRI. He was discharged on Plavix and aspirin as well as a statin. He is showing no progression. His states that is not seemingly improved in the last hour and a half since onset at 9:00 a.m.. P: No pain Q: Not applicable R: Not applicable S: Not applicable T: Not applicable REVIEW OF SYSTEMS: Constitutional: No fever, no chills. Eyes: No discharge No diplopia ENT: No sore throat. Cardiovascular: No chest pain, no palpitations. Respiratory: No cough, shortness of breath, or wheezing. Gastrointestinal: No nausea vomiting or diarrhea. No abdominal pain. Genitourinary: No hematuria or frequency. Musculoskeletal: No back pain. Skin: No rashes. Neurological: No headache. 10 point ROS otherwise negative Source: Patient Exam Limitations: Clinical condition (Expressive aphasia expressive aphasia) - Personal History Current Tetanus Diphtheria and Acellular Pertussis (TDAP): Yes - Medical/Surgical History Hx Asthma: Yes Hx Chronic Respiratory Disease: No Hx Diabetes: No Hx Cardiac Disease: No Hx Renal Disease: Yes Hx Cirrhosis: No Hx Alcoholism: No Hx HIV/AIDS: No Hx Splenectomy or Spleen Trauma: No Other PMH: L shoulder, HTN,R/l hip arthoplasty, renal insufficiency, hypothyroid ,aphasic stroke 2017, small PFO seen on echocardiogram Mar 2016. Recently started on Eliquis, then Coumadin (switched for expense) for some form of rhythm irregularity. Spouse believes it was A Fib. - Social History Smoking Status: Never smoked Alcohol Use: None Drug Use: None - Physical Exam Exam: General Appearance: Alert, no distress. Afebrile. Normal phonation, though he has expressive aphasic with only some of his words appropriate. No respiratory distress. Eyes: Pupils equal and round no pallor or injection. No icterus ENT, Mouth: Mucous membranes moist Pharynx without erythema or exudate. TM Clear. Neck: No adenopathy. Supple. No JVD. Trachea in midline. Respiratory: There are no retractions, lungs are clear to auscultation. Chest wall: Nontender to palpation. No crepitus. Cardiovascular: Regular rate and rhythm, no murmur Abdomen: Soft and nontender, no masses, bowel sounds normal. Femoral pulses equal. Neurological: Ox3. No motor weakness, though he does exhibit right upper extremity ataxia with poor [id number] and for use of a coffee mug. Sensation intact. His Romberg is negative however his tandem walking is poor even for age. Stroke scale is 3: Ataxia right upper extremity Expressive aphasia Some trouble walking Processing: He could not specifically articulate what was wrong with the pictures I demonstrated to him as he has the expressive aphasia. The week fluid did say that 1 child was tipping over Skin: Warm and dry, no rashes. Musculoskeletal: No joint swelling. Extremities: No edema. Homans sign negative. No cords. Psychiatric: Normal affect. There is no agitation Constitutional: Initial Vital Signs Temperature (C) 36.4 C 01/02/18 10:29 Heart Rate 58 L 01/02/18 10:29 Respiratory Rate 20 01/02/18 10:29 Blood Pressure 106/70 01/02/18 10:29 O2 Sat (%) 93 01/02/18 10:29 O2 Delivery Mode Room Air Allergies/Adverse Reactions: No Known Allergies Allergy (Verified 12/16/16 19:50) Home Medications: Medication Instructions Recorded Atorvastatin Calcium [Lipitor 20 20 mg PO DAILY 01/02/18 mg (*)] Levothyroxine [Synthroid 50 mcg 50 mcg PO DAILY06 01/02/18 (*)] Losartan Potassium [Cozaar 50 mg 50 mg PO DAILY 01/02/18 (*)] Warfarin Sodium [Coumadin 5MG (*)] 5 mg PO DAILY 01/02/18 Medical Decision Making - Diagnostics EKG Interpretation: EKG: Interpreted by me contemporaneously. Rhythm: Normal sinus rhythm., first-degree block with a P are 240 Heart rate 55 QTc 414 QRS: normal STT segment: normal T Waves: Normal Q waves none Summary: Normal sinus rhythm with a first-degree block of 240 Imaging Results: Imaging Impressions Head CT 01/02/18 10:39 Impression: 1. Nothing acute identified. Stable x13 months. 2. Old left parietal, middle cerebral territory, cerebral infarctions.. Results called and discussed with Easton Meyers MD, at 01/02/2018 11:16 General information for patients regarding this examination can be found at [email or web address]. If you have questions or comments about this report, please contact me at (hospital) or [phone] (cell). Imaging: Discussed imaging studies w/ will call clerk Radiologist ED Course/Re-evaluation: Upon arrival the patient was interviewed in his stroke scale was performed. He was sent for emergent CT scan stroke protocol. Labs ordered. When he arrived back from the CT scan, my plan review was that of no intercurrent changes, so I talked with Dr. Lopez of the [facility]. Dr. Lopez performed a consult and examined the patient. It with probable subsequent MRI scanning but no indication for TPA at this time. Upon his arrival back from CT scan I had a chance to examine the patient. He showed improvement in his ability to talk and articulate as he was able to speak in a cogent manner, and including a full paragraph with respect to his activity this morning including shower. CT scan read by the radiologist as showing no interval changes, no acute changes. EKG as well as bedside monitoring showed normal sinus rhythm without ectopy or atrial fib, though first-degree block. Cases D/w with O REJI Alejo at the Hospitalist service and patient admitted to Dr. Tavarez. Full admission, PACU. Differential Diagnosis: Differential Includes but is not limited to: Meningitis, new onset seizure disorder, encephalitis, intracranial hemorrhage, vasculitis, CVA, TIA. Critical Care Time: I spent a total of 60 minutes of critical care time in obtaining history, performing a physical exam, bedside monitoring of interventions, collecting and interpreting tests and discussion with consultants but not including time spent performing procedures. - Data Points Laboratory Results: Laboratory Results 01/02/18 10:41 01/02/18 01/02/18 01/02/18 10:41 10:41 10:37 WBC 7.17 10^3/uL 10^3/uL (3.80-9.50) RBC 5.33 10^6/uL 10^6/uL (4.40-6.38) Hgb 16.4 g/dL g/dL (13.7-17.5) Hct 48.2 % % (40.0-51.0) MCV 90.4 fL fL (81.5-99.8) MCH 30.8 pg pg (27.9-34.1) MCHC 34.0 g/dL g/dL (32.4-36.7) RDW 13.8 % % (11.5-15.2) Plt Count 184 10^3/uL 10^3/uL (150-400) MPV 10.0 fL fL (8.7-11.7) Neut % (Auto) 58.0 % % (39.3-74.2) Lymph % (Auto) 24.5 % % (15.0-45.0) [place] % (Auto) 10.0 % % (4.5-13.0) Eos % (Auto) 6.6 % % (0.6-7.6) Baso % (Auto) 0.8 % % (0.3-1.7) Nucleat RBC Rel Count 0.0 % % (0.0-0.2) Absolute Neuts (auto) 4.15 10^3/uL 10^3/uL (1.70-6.50) Absolute Lymphs (auto) 1.76 10^3/uL 10^3/uL (1.00-3.00) Absolute Monos (auto) 0.72 10^3/uL 10^3/uL (0.30-0.80) Absolute Eos (auto) 0.47 10^3/uL H 10^3/uL (0.03-0.40) Absolute Basos (auto) 0.06 10^3/uL 10^3/uL (0.02-0.10) Absolute Nucleated RBC 0.00 10^3/uL 10^3/uL (0-0.01) Immature Gran % 0.1 % % (0.0-1.1) Immature Gran # 0.01 10^3/uL 10^3/uL (0.00-0.10) PT 17.4 SEC H SEC (12.0-15.0) INR 1.41 H (0.83-1.16) POC Glucose 116 mg/dL H mg/dL (70-100) Point of Care Test Results: Chemistry 01/02/18 10:37 POC Glucose 116 mg/dL H mg/dL (70-100) Departure - Departure Clinical Impression: History of PFO CVA (cerebral vascular accident) Qualifiers: CVA mechanism: unspecified Qualified Code(s): I63.9 - Cerebral infarction, unspecified Condition: Fair
--- NOTE | 2018-01-02 11:34 | CPEKG ---
Heart Rate: 55 RR Interval: 1091 P-R Interval: 240 QRSD Interval: 82 QT Interval: 432 QTC Interval: 414 P [place]: 46 QRS [place]: 13 T Wave [place]: 31 EKG Severity - ABNORMAL ECG - EKG Impression: SINUS RHYTHM EKG Impression: FIRST DEGREE AV BLOCK EKG Impression: Unchanged from January 04, 2017 Electronically Signed By: Easton Meyers 02-Jan-2018 13:49:26
[2018-01-02 11:42] LABS: PLATELET COUNT 184 10^3/uL (150-400)
[2018-01-02 11:50] LABS: INR 1.41 (0.83-1.16); PROTIME(PATIENT) 17.4 SEC (12.0-15.0)
[2018-01-02] MEDS ORDERED: HEPARIN 10,000 UNIT/10 ML MDV (1,000 UNIT/ML) IVP PRN (14:14)
[2018-01-02] MEDS ORDERED: ACETAMINOPHEN 325 MG TAB PO PRN (14:48)
[2018-01-02] MEDS ORDERED: ONDANSETRON 4 MG/2 ML VIAL IVP PRN (14:48)
[2018-01-02] MEDS: HEPARIN/DEXTROSE 500 ML IV SCH (17:33)
--- NOTE | 2018-01-02 17:41 | GHP ---
[f rep st] HISTORY AND PHYSICAL DATE OF ADMISSION: 01/02/2018 CHIEF COMPLAINT: Aphasia. HISTORY: The patient is a 78-year-old male with a known history of recurrent embolic strokes. He perry s had multiple admissions in the past where his MRI showed a showering of emboli consistent with card iogenic source. A Linq monitor was placed. They were called a few weeks ago, stating AFib was found on the Linq and he was started on Eliquis. He took the Eliquis for a few weeks, however, it is proh ibitively expensive, so he is currently undergoing a transition to warfarin. He took his last dose o f Eliquis early last week and has now been on Coumadin only for 3 days. There was no bridging prescr ibed. He awoke this morning at 8 o'clock and noticed trouble articulating his words and trouble walk ing with a weakness of the right foot. Time of onset was unclear, as he awoke with these deficits. Yuli was called. TPA was not indicated due to lack of onset time. Since then, he has had neuro r esolution with all the deficits noted this morning having resolved. He describes an aphasia and word -finding difficulty. He was dropping items from his hand. Now, he is able to speak fluently. His w ze, however, has noticed baseline aphasia and cognitive difficulties over the last month and they di d have an outpatient appointment scheduled with Speech Therapy this upcoming week. PAST MEDICAL HISTORY: 1. Recurrent embolic strokes. 2. Atrial fibrillation noted on Linq monitor. 3. Patent foramen ovale. 4. Hypertension. 5. Hyperlipidemia. 6. History of pulmonary embolus. 7. Chronic kidney disease. Baseline creatinine 1.5-1.7. PAST SURGICAL HISTORY: Left total hip arthroplasty. MEDICATIONS: Please see computer record for full detailed list. ALLERGIES: No known drug allergies. SOCIAL HISTORY: No smoking. Lives with his . REVIEW OF SYSTEMS: Complete review of systems obtained. Review of systems negative regarding consti tutional, HEENT, GI, pulmonary, vascular, , hematologic, skin, musculoskeletal, endocrine, and psyc h, except for positives and negatives as noted in HPI. FAMILY HISTORY: Reviewed, noncontributory to presenting complaint. PHYSICAL EXAMINATION: GENERAL: Well-developed, well-nourished male, in no acute distress. VITAL SI GNS: Temperature 36.4, pulse 52, blood pressure 124/74, saturating 93% on room air. EYES: Normal c onjunctivae. Pupils react to light. ENT: Normal ears and nose. Hearing intact. Normal teeth. Or opharynx moist. NECK: Trachea midline. No thyromegaly. CHEST: Normal effort. Lungs are clear to auscultation bilaterally. CARDIOVASCULAR: Regular rate and rhythm. No murmur. No lower extremity edema. ABDOMEN: Soft, nontender. No hepatosplenomegaly. SKIN: Warm, dry, intact. No rash. MUS CULOSKELETAL: No cyanosis or clubbing. Strength 5/5 upper and lower extremities. NEUROLOGIC: Cran ial nerves intact. Normal sensation to light touch. PSYCH: Alert and oriented x3. Normal mood and affect. Normal judgment and insight. Normal memory. He is able to name simple items normally. He can repeat no ifs, ands, or buts, getting tied up in the tongue twister nature of it, but being able to speak the words without difficulty. LABORATORY DATA: White count 7.17, hematocrit 48.2, platelets 24. INR is 1.4. Head CT is negative for anything acute. EKG reviewed by me. My personal interpretation is normal sinus rhythm. No ST o r T-wave changes. ASSESSMENT/PLAN: 1. Transient ischemic attack versus mild new acute stroke. He has a known propensity for embolic st rokes, having had multiple in the past. He now presents with a subtherapeutic INR during a transitio n from Eliquis to warfarin. I think the source of his strokes is clear and I do not think he needs a repeat workup as this has been done in the past. He clearly will need bridging in the future whenev er he is off anticoagulation even for brief periods of time. Given his near resolution to normal at this time, I think it is safe to start him on a low-dose IV heparin as a bridge to a therapeutic INR. I will do a neuro IV heparin protocol without an initial bolus. Will follow neuro checks closely a nd heparin can be turned off if there is any neuro change, although I think his risk of hemorrhagic c onversion is relatively low and the risk/benefit ratio is definitely in favor of proceeding with brid ge anticoagulation. If he stabilizes on this therapy, he could potentially transition to Psychiatric hospital and discharge home. 2. Atrial fibrillation. Recently found on Linq monitor. He had a Linq monitor for a prolonged damir od of time prior to this atrial fibrillation being found, so presumably these bouts are quite infrequ ent. Anticoagulation plan as above. 3. Patent foramen ovale. This may be contributing to his recurrent embolic strokes as well. Could consider closure in the future. 4. Chronic kidney disease. We will check a creatinine in the morning. CODE STATUS: Full. ADMISSION STATUS: 1. Will admit to observation. We will re-evaluate tomorrow for ongoing hospitalization. 2. DVT Prophylaxis: He is high risk but will be anticoagulated with IV heparin as above. /[id number]/MODL
[2018-01-03] MEDS ORDERED: LEVOTHYROXINE 50 MCG TAB PO SCH (06:00)
[2018-01-03 06:21] LABS: INR 1.96 (0.83-1.16); PROTIME(PATIENT) 22.4 SEC (12.0-15.0)
[2018-01-03] MEDS ORDERED: LOSARTAN POTASSIUM 50 MG TAB PO SCH (09:00)
[2018-01-03] MEDS ORDERED: ATORVASTATIN CALCIUM 20 MG TAB PO SCH (09:00)
[2018-01-03] MEDS: HEPARIN/DEXTROSE 500 ML IV SCH (10:08)
--- NOTE | 2018-01-03 10:54 | NEUROPROG ---
Assessment: Consult received. Discussed with primary team. Order placed by mistake as part of order set. I am available if needed. Objective: Vital Signs Temp Pulse Resp BP Pulse Ox 36.4 C 53 L 18 130/70 H 92 01/03/18 08:00 01/03/18 08:00 01/03/18 08:00 01/03/18 08:00 01/03/18 08:00 Laboratory Results 01/03/18 Unknown 01/02/18 01/03/18 01/04/18 05:59 05:59 05:59 Intake Total 550 Output Total 700 Balance -700 550 PT 22.4 SEC (12.0-15.0) H 01/03/18 05:50 INR 1.96 (0.83-1.16) H 01/03/18 05:50 Allergies/Adverse Reactions: No Known Allergies Allergy (Verified 12/16/16 19:50)
[2018-01-03] MEDS ORDERED: ENOXAPARIN 80 MG/0.8 ML SYR SC SCH (11:45)
--- NOTE | 2018-01-03 12:05 | GDS ---
[f rep st] DISCHARGE SUMMARY DISCHARGE DIAGNOSES: 1. Aphasia. 2. Transient ischemic attack. 3. Atrial fibrillation. 4. History of patent foramen ovale. 5. Chronic kidney disease. STUDIES/PROCEDURES: CT of the head. PHYSICAL EXAMINATION: GENERAL: The patient is alert. VITAL SIGNS: Afebrile at 36.4, pulse 53, res piratory rate is 18, blood pressure is 130/70, saturating 92% on room air. I have seen and evaluated the patient on the day of discharge. HOSPITAL COURSE: The patient is a 78-year-old male with a history of recurrent embolic strokes who p resented to the emergency room with complaints of aphasia. He was evaluated and diagnosed with: 1. TIA. During this hospitalization, he was placed on a heparin drip as his INR was subtherapeutic. He was continued on his Coumadin therapy as previously prescribed. His symptoms have resolved. He has returned to his baseline mentation. He will receive a 1 time dose of therapeutic Lovenox prior to disposition and will have his INR checked tomorrow, 01/04/2018, at 10:30 in the a.m. as previously ordered. His INR today prior to disposition is 1.96. I have discussed the potential ramifications and complications with the patient, as well as his . They are choosing to not continue bridge th erapy after the 1 time dose of Lovenox and will follow up with primary care physician tomorrow. They do understand that this can potentially increase his risk for further stroke activity; however, they feel that this risk is minimal and do not wish to continue Lovenox injections at home. 2. History of atrial fibrillation. The patient is rate controlled and will continue anticoagulation . 3. Patent foramen ovale. He will follow up in the outpatient setting with potential closure in the future. 4. Chronic kidney disease. His creatinine is at baseline prior to disposition. DISPOSITION: Patient will be discharged home with his . PENDING STUDIES: There are no pending studies. DISCHARGE MEDICATIONS: Please refer to EMR form. He will not be provided any prescriptions at the t malcom of disposition. FOLLOWUP: Followup will be on 01/04/2018, at 10:30 for an INR evaluation as previously scheduled. /[id number]/MODL
[2018-01-03 12:24] VITALS: BP 130/76
[2018-01-03] MEDS ORDERED: WARFARIN SODIUM 5 MG TAB PO SCH (16:00)
== END 2018-01-03 13:40 | disposition home or self-care (01) ==
LOC: CED 10:19 → CEDHOLD 11:31 → INTOOBSV 11:31 → F3N 13:08
PROVIDERS: ADMIT Internal Medicine; ATTEND Hospitalist
DX: G45.9 Transient cerebral ischemic attack, unspecified (principal); R47.01 Aphasia; R29.703 NIHSS score 3; I48.91 Unspecified atrial fibrillation; Q21.1 Atrial septal defect; N18.9 Chronic kidney disease, unspecified; J45.909 Unspecified asthma, uncomplicated; I12.9 Hypertensive chronic kidney disease with stage 1 through stage 4 chronic kidney disease, or unspecified chronic kidney disease; E03.9 Hypothyroidism, unspecified; E78.5 Hyperlipidemia, unspecified; Z79.01 Long term (current) use of anticoagulants; Z79.82 Long term (current) use of aspirin; Z86.73 Personal history of transient ischemic attack (TIA), and cerebral infarction without residual deficits; Z86.711 Personal history of pulmonary embolism; Z96.643 Presence of artificial hip joint, bilateral
CPT/HCPCS: 70450; 92523; 92610; 93005; 97116; 97161; 97166; G0378; G8978; G8979; G8980; G8987; G8988; G8989; G9162; G9163; J1644; J1650; 85520-90

== ENCOUNTER 2018-01-04 10:37 | Observation (INO) | payer OTHER ==
--- NOTE | 2018-01-04 11:02 | EDPHY ---
H & P Stated Complaint: dx from [facility] yesterday for TIA;0930 of inc weak L side, aphasia Time Seen by Provider: 01/04/18 10:40 HPI/ROS: CHIEF COMPLAINT: TIA HISTORY OF PRESENT ILLNESS: Patient is a 78-year-old man with a history of recently diagnosed atrial fibrillation now on Coumadin as well as previous TIAs and CVAs. He was on his way here to get his INR checked today when and 9:30 a.m. He noticed some trouble with coordination in his right hand. His then noticed at 10:15 a.m. Some slurred speech and trouble with thinking of the correct word. They brought him to the ER instead. His symptoms have now resolved except she still has very slight difficulty remembering some words. No slurred speech. No weakness or numbness. No facial droop. No headache. The patient had a very similar presentation 3 days ago and was admitted at that time. His symptoms resolved spontaneously and he was treated with heparin and Lovenox until his INR was therapeutic. He was discharged yesterday. REVIEW OF SYSTEMS: Constitutional: denies: chills, fever, recent illness, recent injury EENTM: denies: blurred vision, double vision, nose congestion Respiratory: denies: cough, shortness of breath Cardiac: denies: chest pain, irregular heart rate, lightheadedness, palpitations Gastrointestinal/Abdominal: denies: abdominal pain, diarrhea, nausea, vomiting, blood streaked stools Genitourinary: denies: dysuria, frequency, hematuria, pain Musculoskeletal: denies: joint pain, muscle pain Skin: denies: lesions, rash, jaundice, bruising Neurological: See HPI Hematologic/Lymphatic: denies: blood clots, easy bleeding, easy bruising Immunologic/allergic: denies: HIV/AIDS, transplant EXAM: GENERAL: Well-appearing, well-nourished and in no acute distress. HEAD: Atraumatic, normocephalic. EYES: Pupils equal round and reactive to light, extraocular movements intact, sclera anicteric, conjunctiva are normal. ENT: TMs normal, nares patent, oropharynx clear without exudates. Moist mucous membranes. NECK: Normal range of motion, supple without lymphadenopathy or JVD. LUNGS: Breath sounds clear to auscultation bilaterally and equal. No wheezes rales or rhonchi. HEART: Regular rate and rhythm without murmurs, rubs or gallops. ABDOMEN: Soft, nontender, normoactive bowel sounds. No guarding, no rebound. No masses appreciated. BACK: No CVA tenderness, no spinal tenderness, step-offs or deformities EXTREMITIES: Normal range of motion, no pitting or edema. No clubbing or cyanosis. NEUROLOGICAL: NIH score of 1 for very mild aphasia. No dysarthria, Cranial nerves II through XII grossly intact. Normal speech, normal gait. 5/5 strength , normal movement in all extremities, normal sensation no pronator drift. PSYCH: Normal mood, normal affect. SKIN: Warm, dry, normal turgor, no visible rashes or lesions. Source: Patient, Family Exam Limitations: No limitations - Medical/Surgical History Hx Asthma: Yes Hx Chronic Respiratory Disease: No Hx Diabetes: No Hx Cardiac Disease: No Hx Renal Disease: Yes Hx Cirrhosis: No Hx Alcoholism: No Hx HIV/AIDS: No Hx Splenectomy or Spleen Trauma: No Other PMH: L shoulder, HTN,R/l hip arthoplasty, renal insufficiency, hypothyroid ,aphasic stroke 2016, small PFO seen on echocardiogram Mar 2016. Recently started on Eliquis, then Coumadin (switched for expense) for some form of rhythm irregularity. Spouse believes it was A Fib. - Family History Significant Family History: No pertinent family hx - Social History Smoking Status: Never smoked Alcohol Use: Sober Drug Use: None Constitutional: Initial Vital Signs Temperature (C) 37 C 01/04/18 10:39 Heart Rate 60 01/04/18 10:39 Respiratory Rate 18 01/04/18 10:39 Blood Pressure 107/93 H 01/04/18 10:39 O2 Sat (%) 91 L 01/04/18 10:39 O2 Delivery Mode Room Air O2 (L/minute) 2 Allergies/Adverse Reactions: No Known Allergies Allergy (Verified 01/04/18 10:49) Home Medications: Medication Instructions Recorded Atorvastatin Calcium [Lipitor 20 20 mg PO DAILY 01/02/18 mg (*)] Levothyroxine [Synthroid 50 mcg 50 mcg PO DAILY06 01/02/18 (*)] Losartan Potassium [Cozaar 50 mg 50 mg PO DAILY 01/02/18 (*)] Warfarin Sodium [Coumadin 5MG (*)] 5 mg PO DAILY 01/02/18 Medical Decision Making - Diagnostics EKG Interpretation: An EKG obtained and was read and documented in trace view. Please see trace view for full reading and report. Sinus rhythm, first-degree block, similar to previous Imaging Results: Imaging Impressions Head CT 01/04/18 10:53 Impression: Old left middle cerebral artery territory infarction. Atherosclerotic disease. Nothing acute identified. Normal concordant results discussed with Dr. Laguna at 11:08 AM. General information for patients regarding this examination can be found at [email or web address]. If you have questions or comments about this report, please contact me at [phone] (hospital) or [phone] (cell). Chest X-Ray 01/04/18 10:54 Impression: Negative. Specifically no evidence for pulmonary edema or CHF. Results discussed with Dr. Jesus Hudson at 11:53 AM. Head CTA 01/04/18 10:59 Impression: 1. Normal CT angiogram of the neck 2. Possible biapical pulmonary edema. Recommend correlation with a chest x-ray. Note: All stenoses are calculated using NASCET Criteria. 1. CT Angiogram of the Brain at 11:14 AM Clinical Indications: Aphasia, stroke alert, noncontrast head CT stable since January 02, 2018 Technique: CT angiogram of the brain was performed with the uneventful intravenous administration of 75 mL Isovue-370 contrast. Multiplanar reconstructions including 3D reconstructions performed and evaluated on [employer] workstation in order to better evaluate the [place] vessels. Images were manipulated by the radiologist at the computer workstation. Dose reduction techniques were utilized. Findings: There is nonflow limiting (by NASCET criteria) atherosclerotic calcification of both cavernous carotid arteries and distal vertebral arteries. There is less contrast opacification of vessels in the left anterior sylvian fissure region and left anterior parietal lobe than on the right. No obvious cut off vessel or filling defect is identified. The left anterior cerebral artery is dominant compared to the smaller right. There is a patent anterior communicating artery. There is a tiny right posterior communicating artery. No left posterior communicating artery is identified. Both distal vertebral arteries are patent into the normal basilar artery. Both posterior cerebral arteries, superior cerebellar arteries and posterior inferior cerebellar arteries are patent. Major vessels of the [place] are adequately displayed, demonstrating no evidence of aneurysm, vascular malformation, flow-limiting stenosis, or occlusion. Bilateral cavernous internal carotid arteries and vertebrobasilar system demonstrate no evidence of flow-limiting stenosis, aneurysm, occlusion or dissection. Superior sagittal sinus, transverse sinuses, and major veins demonstrate no evidence of intraluminal thrombi. Impression: Decreased arterial contrast opacification of anterior left sylvian fissure and left anterior parietal lobe. Otherwise negative. Consider follow-up MRI. Final concordant results discussed with Dr. Hudson at 11:30 AM. Neck CTA 01/04/18 10:59 Impression: 1. Normal CT angiogram of the neck 2. Possible biapical pulmonary edema. Recommend correlation with a chest x-ray. Note: All stenoses are calculated using NASCET Criteria. 1. CT Angiogram of the Brain at 11:14 AM Clinical Indications: Aphasia, stroke alert, noncontrast head CT stable since January 02, 2018 Technique: CT angiogram of the brain was performed with the uneventful intravenous administration of 75 mL Isovue-370 contrast. Multiplanar reconstructions including 3D reconstructions performed and evaluated on [employer] workstation in order to better evaluate the [place] vessels. Images were manipulated by the radiologist at the computer workstation. Dose reduction techniques were utilized. Findings: There is nonflow limiting (by NASCET criteria) atherosclerotic calcification of both cavernous carotid arteries and distal vertebral arteries. There is less contrast opacification of vessels in the left anterior sylvian fissure region and left anterior parietal lobe than on the right. No obvious cut off vessel or filling defect is identified. The left anterior cerebral artery is dominant compared to the smaller right. There is a patent anterior communicating artery. There is a tiny right posterior communicating artery. No left posterior communicating artery is identified. Both distal vertebral arteries are patent into the normal basilar artery. Both posterior cerebral arteries, superior cerebellar arteries and posterior inferior cerebellar arteries are patent. Major vessels of the [place] are adequately displayed, demonstrating no evidence of aneurysm, vascular malformation, flow-limiting stenosis, or occlusion. Bilateral cavernous internal carotid arteries and vertebrobasilar system demonstrate no evidence of flow-limiting stenosis, aneurysm, occlusion or dissection. Superior sagittal sinus, transverse sinuses, and major veins demonstrate no evidence of intraluminal thrombi. Impression: Decreased arterial contrast opacification of anterior left sylvian fissure and left anterior parietal lobe. Otherwise negative. Consider follow-up MRI. Final concordant results discussed with Dr. Hudson at 11:30 AM. Imaging: Discussed imaging studies w/ forge utility worker Radiologist ED Course/Re-evaluation: The patient's symptoms have mostly resolved but he still has very slight difficulty remembering some of the words on the card or words like computer or soap. I have called a stroke alert and talked with Dr. Kidd from [place]. She requests that we get the CT without and also with angio and then call her back. The patient will not be a tPA candidate because he is currently on Coumadin and his symptoms have improved significantly. He may be a candidate for intra- arterial intervention. 11:50 a.m. I discussed the case with Heidi Boudreaux who will accept for Rosalba Oates. She states the patient has some trouble with word finding at baseline. This may be his baseline now and he had a TIA that is resolved. Differential Diagnosis: Partial list of the Differential diagnosis considered include but were not limited to; TIA, CVA, anxiety and although unlikely based on the history and physical exam, I also considered seizure, infection. - Data Points Laboratory Results: Laboratory Results 01/04/18 10:53 01/04/18 01/04/18 01/04/18 11:03 10:53 10:53 WBC RBC Hgb Hct MCV MCH MCHC RDW Plt Count MPV Neut % (Auto) Lymph % (Auto) [place] % (Auto) Eos % (Auto) Baso % (Auto) Nucleat RBC Rel Count Absolute Neuts (auto) Absolute Lymphs (auto) Absolute Monos (auto) Absolute Eos (auto) Absolute Basos (auto) Absolute Nucleated RBC Immature Gran % Immature Gran # PT 20.0 SEC H SEC (12.0-15.0) INR 1.69 H (0.83-1.16) APTT 37.2 SEC SEC (23.0-38.0) POC Sodium 137 mEq/L mEq/L (135-145) POC Potassium 4.3 mEq/L mEq/L (3.3-5.0) POC Chloride 106.0 mEq/L mEq/L (97-110) POC Total CO2 20 mEq/L L mEq/L (22-31) POC BUN 22 mg/dL mg/dL (7-23) POC Creatinine 1.7 mg/dL H mg/dL (0.7-1.3) POC Glucose 103 mg/dL H mg/dL (70-100) POC Calcium 9.9 mg/dL mg/dL (8.5-10.4) POC Troponin I 0.01 ng/mL ng/mL (0.00-0.08) 01/04/18 10:53 WBC 8.13 10^3/uL 10^3/uL (3.80-9.50) RBC 5.45 10^6/uL 10^6/uL (4.40-6.38) Hgb 17.0 g/dL g/dL (13.7-17.5) Hct 48.5 % % (40.0-51.0) MCV 89.0 fL fL (81.5-99.8) MCH 31.2 pg pg (27.9-34.1) MCHC 35.1 g/dL g/dL (32.4-36.7) RDW 14.0 % % (11.5-15.2) Plt Count 187 10^3/uL 10^3/uL (150-400) MPV 9.8 fL fL (8.7-11.7) Neut % (Auto) 60.8 % % (39.3-74.2) Lymph % (Auto) 21.6 % % (15.0-45.0) [place] % (Auto) 10.7 % % (4.5-13.0) Eos % (Auto) 6.0 % % (0.6-7.6) Baso % (Auto) 0.7 % % (0.3-1.7) Nucleat RBC Rel Count 0.0 % % (0.0-0.2) Absolute Neuts (auto) 4.93 10^3/uL 10^3/uL (1.70-6.50) Absolute Lymphs (auto) 1.76 10^3/uL 10^3/uL (1.00-3.00) Absolute Monos (auto) 0.87 10^3/uL H 10^3/uL (0.30-0.80) Absolute Eos (auto) 0.49 10^3/uL H 10^3/uL (0.03-0.40) Absolute Basos (auto) 0.06 10^3/uL 10^3/uL (0.02-0.10) Absolute Nucleated RBC 0.00 10^3/uL 10^3/uL (0-0.01) Immature Gran % 0.2 % % (0.0-1.1) Immature Gran # 0.02 10^3/uL 10^3/uL (0.00-0.10) PT INR APTT POC Sodium POC Potassium POC Chloride POC Total CO2 POC BUN POC Creatinine POC Glucose POC Calcium POC Troponin I Medications Given: Discontinued Medications Aspirin (Aspirin) 324 mg PO EDNOW ONE Stop: 01/04/18 11:48 Last Admin: 01/04/18 11:56 Dose: 324 mg Enoxaparin Sodium (Lovenox) 80 mg SC EDNOW ONE Stop: 01/04/18 11:45 Last Admin: 01/04/18 11:56 Dose: 80 mg Sodium Chloride (Ns) 1,000 mls @ 0 mls/hr IV EDNOW ONE; Wide Open PRN Reason: Protocol Stop: 01/04/18 11:48 Last Admin: 01/04/18 11:55 Dose: 1,000 mls Point of Care Test Results: Chemistry 01/04/18 01/04/18 11:03 10:53 POC Sodium 137 mEq/L mEq/L (135-145) POC Potassium 4.3 mEq/L mEq/L (3.3-5.0) POC Chloride 106.0 mEq/L mEq/L (97-110) POC Total CO2 20 mEq/L L mEq/L (22-31) POC BUN 22 mg/dL mg/dL (7-23) POC Creatinine 1.7 mg/dL H mg/dL (0.7-1.3) POC Glucose 103 mg/dL H mg/dL (70-100) POC Calcium 9.9 mg/dL mg/dL (8.5-10.4) POC Troponin I 0.01 ng/mL ng/mL (0.00-0.08) Departure - Departure Disposition: [facility] Acute Clinical Impression: TIA (transient ischemic attack) Qualifiers: Transient cerebral ischemia type: unspecified Qualified Code(s): G45.9 - Transient cerebral ischemic attack, unspecified Condition: Fair
[2018-01-04] MEDS ORDERED: IOPAMIDOL (ISOVUE 370) 100 ML BTL IV ONE (11:10)
[2018-01-04 11:23] LABS: PLATELET COUNT 187 10^3/uL (150-400)
--- NOTE | 2018-01-04 11:32 | CPEKG ---
Heart Rate: 53 RR Interval: 1132 P-R Interval: 236 QRSD Interval: 88 QT Interval: 424 QTC Interval: 399 P [place]: 27 QRS [place]: 10 T Wave [place]: 39 EKG Severity - ABNORMAL ECG - EKG Impression: SINUS RHYTHM EKG Impression: FIRST DEGREE AV BLOCK EKG Impression: Similar to previous Electronically Signed By: Jesus Hudson 04-Jan-2018 11:32:55
[2018-01-04 11:33] LABS: INR 1.69 (0.83-1.16)
[2018-01-04] MEDS ORDERED: ENOXAPARIN 80 MG/0.8 ML SYR SC ONE (11:44)
[2018-01-04] MEDS ORDERED: NS 1,000 ML IV ONE (11:47)
[2018-01-04] MEDS ORDERED: ASPIRIN 81 MG CHEWABLE TAB PO ONE (11:47)
[2018-01-04] MEDS ORDERED: ONDANSETRON DISINTEGRATING 4 MG TAB PO PRN (15:01)
[2018-01-04] MEDS ORDERED: ONDANSETRON 4 MG/2 ML VIAL IVP PRN (15:01)
[2018-01-04] MEDS ORDERED: ACETAMINOPHEN 325 MG TAB PO PRN (15:01)
[2018-01-04] MEDS ORDERED: FLUTICASONE NASAL 120 SPRAYS/16 GM MDI EACHNARE PRN (15:06)
--- NOTE | 2018-01-04 16:39 | GHP ---
[f rep st] HISTORY AND PHYSICAL DATE OF ADMISSION: 01/04/2018 CHIEF COMPLAINT: Aphasia, word-finding difficulties. HISTORY OF PRESENT ILLNESS: Mr. Arechiga is a 78-year-old man who has a history significant for previo us stroke presenting as word-finding difficulties and aphasia. At the time the evaluation was unrema rkable and he was diagnosed with a cryptogenic stroke and has been on aspirin and Plavix as well as a statin since then. He was recently diagnosed with atrial fibrillation/flutter via a Holter monitor through Dr. James's office on December 17, at which time he was started on Eliquis. Due to issues with cost and some side affects of stomach upset, he ended up stopping the Eliquis on December 29 and was phan sitioned to Coumadin on December 30. He was given a prescription for 5 mg of Coumadin. He did not take a spirin or Plavix after stopping the Eliquis either. On January 02 he woke up with some symptoms of word- finding difficulties and aphasia similar to his previous stroke but milder and was admitted overnight at this facility. At the time it was felt it was likely secondary to subtherapeutic INR. He was gi ye Lovenox and his symptoms resolved and he was back to baseline and sent home last night. He was g iven a dose of Lovenox last night with plans to follow up this morning at the [facility] for ano ther INR and possible additional Lovenox if needed. However, when he woke up this morning he again h ad some word-finding difficulties, aphasia, and perhaps some dragging of his right foot so went into the emergency department and was found to have a subtherapeutic INR of 1.6 today and transferred here after a stroke alert was called. He did have a CT angiogram of his head and neck which showed no cl ots and was transferred to this facility. Upon arrival his symptoms have since improved back to base line. He denies any headache, vision, hearing changes. He has had no chest pain, shortness of breat h. No abdominal complaints. No bowel or bladder changes. No current joint issues. No numbness, ti ngling, and his strength feels back to normal. His admits that his word-finding difficulties re cently had worsened since he stopped going to speech therapy in July and they have set up an appo intment next week with Speech Therapy. REVIEW OF SYSTEMS: A comprehensive review of systems was done with pertinent positives present in HP I. PAST MEDICAL HISTORY: 1. Previous CVA. 2. Atrial fibrillation/flutter recently diagnosed via Holter, asymptomatic. 3. Hypothyroidism on replacement. 4. Hypertension. 5. Hyperlipidemia, currently on statin. 6. PFO. 7. History of PE post-orthopedic surgery remotely. 8. Chronic renal failure, baseline creatinine around 1.6-1.8. PAST SURGICAL HISTORY: Includes bilateral hip replacements and a left shoulder reconstruction. FAMILY HISTORY: Mother and father both had cancer. He has an uncle with heart disease. SOCIAL HISTORY: He is . He and his live in their own home. He still is independent and still drives. There is no tobacco use and rare alcohol use. 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 As a 2nd career previously he worked for the [employer]. CURRENT MEDICATIONS: Include Coumadin, atorvastatin 20 mg daily, levothyroxine 50 mcg daily. A numb er of supplements and losartan 50 mg daily. ALLERGIES: No known drug allergies. PHYSICAL EXAMINATION: VITAL SIGNS: He is afebrile. Heart rate 54, blood pressure 112/76, respirati ons 18, he is 95% on 2 L. GENERAL: He is a very pleasant 78-year-old man. He is in no distress. H e is alert and oriented. HEENT: He is atraumatic. Pupils are equal. Extraocular movements intact. Mucous membranes moist. Face is symmetric. Tongue is midline. NECK: Supple. No adenopathy. HE ART: Regular rate and rhythm. Slightly bradycardic. LUNGS: Clear bilaterally without wheeze or rh onchi. ABDOMEN: Soft. No masses. EXTREMITIES: No clubbing, cyanosis, or edema. MUSCULOSKELETAL: No muscle atrophy. No joint deformities. Spine nontender. NEUROLOGIC: He does have notable word -finding difficulties at times but no slurred speech. He is alert and oriented. Strength is 5/5 thr oughout. Sensation grossly intact. SKIN: Intact. No rash. PSYCHIATRIC: He has a normal mood. LABORATORY DATA: CBC and chemistries are all within normal limits except for an elevated creatinine of 1.7. CTA of the head and neck showing no clot. Head CT without bleed. Chest x-ray personally re viewed and interpreted, negative for pulmonary or cardiac disease. Electrocardiogram personally revi anied and interpreted: Sinus bradycardia with a 1st-degree AV block. ASSESSMENT AND PLAN: 1. A 78-year-old presents with recurrent word-finding difficulties, which has since gone back to [place] je[place] per his 's report. He was recently started on anticoagulation for atrial fibrillation/flut ter noted on Holter monitor, which is asymptomatic. He could not tolerate the Eliquis and was starte d on Coumadin without a bridge, during which time he was not on aspirin or Plavix and has had intermi ttent, recurrent symptoms of word-finding and aphasia. Plan will be to admit him for observation. R esume Lovenox and Coumadin. While he is here in the hospital we will do some Lovenox teaching for hi s and him and do some Coumadin teaching and set up outpatient followup with the anticoag clinic. I did discuss the case with Dr. Madison, his primary neurologist, who will see him in followup as an ou tpatient and does not recommend any further imaging or testing. The patient and are in agreemen t with the above outlined plan. 2. Hypertension, currently stable. Will continue usual medications. Will watch for any hypotension . 3. Mild bradycardia. The patient is not on a beta jerson. He may have some mild sick sinus syndro me and will need to be monitored. 4. Atrial fibrillation flutter, currently in sinus and anticoagulated as above noted. 5. Hypothyroidism on replacement. Most recent TSH was in October 2017 and within normal limits. 6. Chronic renal failure with a stage 3 creatinine, stable. 7. Code status. The patient and are in agreement that he would like to be a full code while he re in the hospital. /[id number]/MODL
[2018-01-04] MEDS ORDERED: ATORVASTATIN CALCIUM 20 MG TAB PO SCH (18:00)
[2018-01-04] MEDS ORDERED: ENOXAPARIN 80 MG/0.8 ML SYR SC SCH (21:00)
[2018-01-05 05:10] LABS: PLATELET COUNT 171 10^3/uL (150-400)
[2018-01-05 05:15] LABS: INR 2.19 (0.83-1.16); PROTIME(PATIENT) 24.4 SEC (12.0-15.0)
[2018-01-05] MEDS ORDERED: LEVOTHYROXINE 50 MCG TAB PO SCH (06:00)
[2018-01-05] MEDS ORDERED: ENOXAPARIN 120 MG/0.8 ML SYR SC SCH (09:00)
[2018-01-05] MEDS ORDERED: LOSARTAN POTASSIUM 50 MG TAB PO SCH (09:00)
[2018-01-05 12:11] VITALS: BP 150/71
--- NOTE | 2018-01-05 12:13 | GDS ---
[f rep st] DISCHARGE SUMMARY DIAGNOSES: 1. Likely mild transient ischemic attack, resolved. 2. History of cerebrovascular accident with resultant word-finding difficulties. 3. Atrial fibrillation flutter on anticoagulation with Coumadin. 4. Hypertension. 5. Hypothyroidism. PROCEDURES DONE: Head and neck CT angiogram showing no clot. Head CT negative. HOSPITAL COURSE: The patient is a 78-year-old recently diagnosed with A-flutter and started on Couma din. During the start-up phase he was not bridged and he stopped his Plavix and aspirin. He had rec urrent symptoms of his previous stroke including some aphasic and word-finding difficulties. He was brought in to the hospital on January 02, started on Lovenox and Coumadin and at the time of discharge, his INR was 1.94. He had followup the next day but before making it to the anti-coag clinic, he had recurrent symptoms of word-finding and aphasia, was readmitted here, had the above evaluation done, was started on Lovenox again and currently his INR is 2.19. I gave him an additional dose of Lovenox dosed at 1.5 mg/kg daily that will be good for another 24 hours despite being therapeutic. I would like to see him over 2 for 2 days. He follows up with the anti-coag clinic on to recheck hi s INR at that time. I suspect his symptoms are likely mild TIAs from being subtherapeutic on Coumadi n and not being on aspirin and Plavix. The patient and were reassured. He will follow up with the anti-coag clinic as scheduled. He should follow up with Dr. Nieto within a week and follow up sallie Madison within 3-4 weeks for stroke followup. CONDITION ON DISCHARGE: Good. DISCHARGE MEDICATIONS: Please see discharge med reconciliation form. FOLLOWUP: As above. /[id number]/MODL
--- NOTE | 2018-01-05 14:42 | ASMTCMCOM ---
CM Note CM Note Notes: Pt in for TIA. PT rec home and BOND CLERK eval not needed pt goes to [facility] for outpatient PT and plans to follow up there. No CM d/c needs identified. Date Signed: 01/05/2018 02:41 PM Electronically Signed By:KATIE Valdivia
[2018-01-05] MEDS ORDERED: WARFARIN SODIUM 5 MG TAB PO SCH (16:00)
== END 2018-01-05 13:46 | disposition home or self-care (01) ==
LOC: CED 10:37 → CEDHOLD 11:52 → F3N 13:46
PROVIDERS: ADMIT Internal Medicine; ATTEND Internal Medicine
DX: R47.01 Aphasia (principal); I48.91 Unspecified atrial fibrillation; I48.92 Unspecified atrial flutter; R79.1 Abnormal coagulation profile; R00.1 Bradycardia, unspecified; R29.701 NIHSS score 1; E03.9 Hypothyroidism, unspecified; I77.89 Other specified disorders of arteries and arterioles; I12.9 Hypertensive chronic kidney disease with stage 1 through stage 4 chronic kidney disease, or unspecified chronic kidney disease; E78.5 Hyperlipidemia, unspecified; N18.3 Chronic kidney disease, stage 3 (moderate); Z79.01 Long term (current) use of anticoagulants; Z86.73 Personal history of transient ischemic attack (TIA), and cerebral infarction without residual deficits; Z96.643 Presence of artificial hip joint, bilateral
CPT/HCPCS: 70450; 70496; 70498; 71045; 93005; 97161; 97166; G0378; G8978; G8979; G8987; G8988; G8989; J1650; Q9967; 80048-PO; 84484-PO

== ENCOUNTER → 2018-08-31 | Outpatient (CLI) | payer OTHER | LOC: FIMAGING 12:48 | PROVIDERS: ATTEND Internal Medicine Hematology & Oncology | DX: M89.8X7 Other specified disorders of bone, ankle and foot (principal); D47.2 Monoclonal gammopathy ==

== ENCOUNTER → 2018-09-20 | Outpatient (CLI) | payer OTHER | LOC: CIMAGING 10:22 | PROVIDERS: ATTEND Physician Assistant | DX: M25.551 Pain in right hip (principal); Z96.641 Presence of right artificial hip joint | CPT/HCPCS: 73700-PO ==

== ENCOUNTER → 2019-01-14 | Outpatient (CLI) | payer OTHER | LOC: FIMAGING 11:41 ==